=== PATIENT | male | born 1980 | race Two or more races ===

== ENCOUNTER → 2016-07-15 | Outpatient (CLI) | payer OTHER ==
--- NOTE | 2016-07-15 23:40 | ECWPNPC ---
PATIENT NAME: DANAE TURCIOS : 1980 GENDER: MALE VISIT DATE: 07/15/2016 DISCHARGE DATE: 07/15/16 1235 VISIT LOCKED DATE TIME: PHYSICIAN: HEMA MIRELES RESOURCE: HEMA MIRELES REASON FOR APPOINTMENT 1. LUMBAR HISTORY OF PRESENT ILLNESS NEW PATIENT CONSULT: 35 Y/[facility] AFTER SLIPPING ON ICE.PAIN IS LOW BACK WITH RADIATION INTO RIGHT LEG.HAD 3 LESI THIS PAST FALL AND STATES FIRST ONE HELPED X ONE MONTH BUT SECOND [address].DR. ZUNIGA SAW HIM ONCE 3 WEEKS AGO WHO ORDERED MRI.DID PT X10 SESSIONS LAST SUMMER AND THIS AGGREVATED PAIN.PAIN IS INTERUPTING SLEEP.HAS NOT BEEN ABLE TO WORK SINCE FALL AND WAS TAKEN OUT OF WORK BY [employer].RATING PAIN VAS 8/10.DENIES BOWEL AND BLADDER INCONTINENECE. WHEN DID YOUR PAIN FIRST START? . BRIEFLY DESCRIBE HOW YOUR PAIN STARTED? . HOW DOES YOUR PAIN CHANGE WITH TIME? . DOES YOUR PAIN AWAKEN YOU FROM SLEEP? . HOW MANY HOURS OF SLEEP DO YOU NORMALLY GET? . ANY DIAGNOSTIC TESTING? . FACILITY WHERE TESTS WERE DONE? ____. PAIN TREATMENT TREATMENT YES CANCER HAVE YOU EVER HAD ANY TYPE OF CANCER?NO NO. PAIN SCREENING: PATIENT HAS A COMPLAINT OF ACUTE OR CHRONIC PAIN YES FALL RISK SCREENING: SCREENING :NO FALLS IN THE PAST YEAR LORENZO INVENTORY: QUESTIONNAIRE ASSESSEDTBD SCORE VALUE CALCULATED TBD CURRENT MEDICATIONS TAKING GABAPENTIN 300 MG CAPSULE 1 CAPSULE ORALLY TWICE TIMES A DAY MEDICATION LIST REVIEWED AND RECONCILED WITH THE PATIENT PAST MEDICAL HISTORY NO MEDICAL HISTORY. ALLERGIES N.K.D.A. SURGICAL HISTORY RIGHT KNEE ORTHOSCOPIC 992 RIGHT BROKEN/PLATE ANKLE 2016 FAMILY HISTORY FATHER: ALIVE MOTHER: ALIVE SIBLINGS: ALIVE SON(S): ALIVE SOCIAL HISTORY GENERAL: TOBACCO USE ARE YOU A:CURRENT SMOKER HOW MANY CIGARETTES A DAY DO YOU SMOKE?11-20 HOW SOON AFTER YOU WAKE UP DO YOU SMOKE YOUR FIRST CIGARETTE?WITHIN 5 MIN HOW OFTEN DO YOU SMOKE CIGARETTES?EVERY DAY PATIENT COUNSELED ON THE DANGERS OF TOBACCO USE AND URGED TO QUIT:07/15/2016 ARE YOU INTERESTED IN QUITTING?THINKING ABOUT QUITTING COUNSELED THE PATIENT ON SMOKING CESSATION, EDUCATION [id number]/21/2017 SMOKING CESSATION INFORMATION GIVEN07/15/2016 RECREATIONAL DRUG USE DRUG USE?NO CAFFEINE CAFFEINE USE?YES OCCUPATION: NOT WORKING [employer] WORKED IN A YEAR, . DIET: REGULAR. EXERCISE: WALKS. MARITAL STATUS: SINGLE. CHURCH: NO PREFERENCE. LANGUAGE: BERMUDIAN. PSYCHOLOGICAL HX TREATMENTNO PAIN CLINIC PFS, CLERGY, PUBLIC HEALTH REFERRALS CLERGY REFERRAL NEEDED?NO WAS THE PROVIDER NOTIFIED OF ANY PERTINENT INFO?NO PFS REFERRAL NEEDED?NO PUBLIC HEALTH REFERRAL NEEDED?NO PATIENT: ____. ADVANCED DIRECTIVES HEALTH CARE PROXY?NO POWER OF STRING LASTER?NO HOSPITALIZATION/MAJOR DIAGNOSTIC PROCEDURE NO HOSPITALIZATION HISTORY. REVIEW OF SYSTEMS CONSTITUTIONAL: RECENT ILLNESS DENIES . ANY CHANGE IN YOUR MEDICAL CONDITION? NO . CHILLS NO . FEVER NO, DENIES . WEIGHT LOSS DENIES . INFECTION: DO YOU HAVE NEW INFECTIONS? NO . DO YOU HAVE HISTORY OF MRSA? NO . MUSCULOSKELETAL: ANY NEW PATTERNS OF PAIN OR NUMBNESS? NO . SYTEMIC LUPUS NO . JOINT PAIN DENIES . JOINT STIFFNESS DENIES . GASTROENTEROLOGY: BOWEL INCONTINENCE DENIES . ANY NEW CHANGE IN BOWEL CONTROL? NO . BARRETTS ESOPHAGUS NO . CIRRHOSIS NO . HEPATITIS NO . LIVER FAILURE NO . ACID REFLUX NO . BLOOD IN STOOL DENIES . UNEXPLAINED WEIGHT LOSS NO . GENITOURINARY: ANY NEW CHANGE IN BLADDER CONTROL? NO . IS THERE A CHANCE YOU COULD BE ? NO . HEMATOLOGY/LYMPH: DENIES . BLEEDING DISORDER DENIES . DO YOU TAKE ANY BLOOD THINNERS? (FOR EXAMPLE- COUMADIN, PLAVIX, AGGRENOX, PLATEL, PRADAXA, OR XARELTO) NO . WHEN WAS YOUR LAST DOSE? DATE: TIME: . LOW PLATELET COUNT NO . SICKLE CELL DISEASE NO . VON WILLIEBRANDS NO . FACTOR V LEIDEN NO . THALLASEMIA NO . ANEMIA NO . EASY BRUISING NO . NEUROLOGY: HAVE YOU FALLEN IN THE PAST 6 MONTHS? NO . ANY NEW EXTREMITY NUMBNESS OR WEAKNESS? NO . HEAD INJURY NO . DEMENTIA NO . CEREBRAL PALSY NO . MULTIPLE SCLEROSIS NO . DIZZINESS NO . HEADACHE NO, DENIES . SEIZURES DENIES . STROKES NO . VERTIGO NO . CARDIOLOGY: DO YOU HAVE A PACEMAKER OR DEFIBRILLATOR? NO . ANGINA NO . HEART ATTACK NO . HEART SURGERY NO . CONGESTIVE HEART FAILURE/FLUID OVERLOAD NO . CHEST PAIN NO, DENIES . HIGH BLOOD PRESSURE NO . IRREGULAR HEART BEAT NO . SHORTNESS OF BREATH DENIES . RESPIRATORY: HAVE YOU BEEN SICK IN THE PAST WEEK? NO . FEVER NO . FLU LIKE SYMPTOMS? NO . CPAP NO . BYPAP NO . ASTHMA NO . EMPHYSEMA NO . CHRONIC LUNG DISEASES NO . SHORTNESS OF BREATH ON EXERTION NO . DO YOU USE ANY TYPE OF TOBACCO (SMOKE, SMOKELESS, CHEW)? NO . COUGH NO, DENIES . SHORTNESS OF BREATH DENIES . SNORING NO . INTEGUMENTARY: DO YOU HAVE ANY RASHES OR OPEN SORES? NO . ALLERGIC/IMMUNO: ARE YOU ALLERGIC TO SHELLFISH OR IV DYE? NO . ANY NEW ALLERGIES? NO . PSYCHIATRIC: DO YOU HAVE THOUGHTS OF HURTING YOURSELF OR SOMEONE ELSE? NO . ARE YOU ABUSED, NEGLECTED, OR IN AN UNSAFE ENVIRONMENT? NO . ENDOCRINOLOGY: THYROID DISEASE DENIES . ARE YOU DIABETIC? NO . DIABETES DENIES . THYROID DISORDER NO . OTHER: DO YOU NEED ANY PRESCRIPTIONS? NO . IF YES, PLEASE LIST: ____ . ANY NEW PROBLEMS WITH YOUR MEDICATIONS? NO . WHEN DID YOU LAST EAT? ____ . WHEN DID YOU LAST DRINK? ____ . WHAT DID YOU LAST DRINK? ____ . NAME OF PERSON DRIVING YOU HOME? ____ . DO YOU HAVE ANY OTHER QUESTIONS OR CONCERNS NO . HEENT: CHANGE IN VISION DENIES . LOSS OF HEARING DENIES . TROUBLE SWALLOWING DENIES . PSYCHOLOGY: ANXIETY DENIES . DEPRESSION DENIES . UROLOGY: URINARY INCONTINENCE DENIES . BLOOD IN URINE DENIES . REVIEWED BY: PROVIDER: HEMA SLATER . VITAL SIGNS WT 277.6 LBS, HT 72 IN, BMI 37.65 INDEX, BP 147/81 MM HG, HR 85 /MIN, RR 16 /MIN, TEMP 98.1 F, OXYGEN SAT % 94%, NA INITIALS SC 10:51, REVIEWED BY: KG. EXAMINATION GENERAL EXAMINATION: HEENT:HEAD:, NORMOCEPHALIC, EYES:, EYES NORMAL, NOSE:, NOSE CLEAR, THROAT: NORMAL. LUNGS:LUNG SOUNDS ARE CLEAR. HEART:HEART RATE REGULAR. ABDOMEN:SOFT AND NOT TENDER, NON-DISTENDED. MUSCULOSKELETAL:*. LUMBAR SACRAL SPINEMUSCLE STRENGTH TESTING 5/5 BILATERAL LOWER EXTREMITIES. PALPATION: + FOR PAIN OVER L/S SPINE. + FOR PAIN OVER L/S PARASPINALS.SPECIFIC POINT TENDERNESS OVER RSIJ.TRIGGER POINTS ELICITED IN BILAT.LUMBAR PARASPINALS R>L.. THORACIC SPINENEGATIVE FOR PAIN WITH PALPATION OF THORACIC SPINE. NEGATIVE FOR PAIN WITH PALPATION OF THORACIC PARASPINAL. CERVICALNEGATIVE FOR PAIN WITH PALPATION OF CERVICAL SPINE. NEGATIVE FOR PAIN WITH PALPATION OF CERVICAL PARASPINALS. NEGATIVE FOR PAIN WITH PALPATION OF TRAPEZIUS BILAT. SKIN:NORMAL, NO RASH. NEUROLOGIC EXAM:ALERT AND ORIENTED X 3, DTRS 1-2+ IN ALL 4 EXTREMITIES, DENIES UPPER EXTREMETIES SENSORY LOSS, DENIES LOWER EXTREMETIES SENSORY LOSS. 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 ASSESSMENTS SACROILIAC JOINT PAIN - M53.3 (PRIMARY) PROTRUDED LUMBAR DISC - M51.26 CHRONIC PRESCRIPTION OPIATE USE - Z79.891 TREATMENT OTHERS START NORCO TABLET, 5-325 MG, 1 TABLET NEEDED, ORALLY, Q12H PRN MDD2, 30 DAY(S), 30, REFILLS 0 START CYCLOBENZAPRINE HCL TABLET, 10 MG, 1 TABLET, ORALLY, BEFORE BEDTIME, 30 DAY(S), 30, REFILLS 1 NOTES: NARCOTIC AGREEMENT AND CLINIC POLICY REVIEWED. PREVENTIVE MEDICINE PAIN CLINIC TEACHING: MEDICATIONS HYDROCODONE/FLEXERIL. PROCEDURE TEACHING WENT OVER PROCEDURE INSTRUCTIONS WITH PT. PROCEDURE CODES FA211 ESTABILISHED PATIENT [facility] FACILITY CHARGE DISPOSITION & COMMUNICATION FOLLOW UP 2WK POST (REASON: RSIJ) ELECTRONICALLY SIGNED BY NOHEMY FRASER ON 07/15/2016 AT 01:33 PM EST DISCLAIMER : THIS IS A VISIT SUMMARY EXTRACTED FROM THE [employer] CHART. IT IS NOT A COPY OF THE [employer] PROGRESS NOTE. LISAD
== END ==
LOC: M PAIN 11:20
PROVIDERS: ATTEND Nurse Practitioner Family
DX: M53.3 Sacrococcygeal disorders, not elsewhere classified (principal); M51.26 Other intervertebral disc displacement, lumbar region; Z79.891 Long term (current) use of opiate analgesic; Z79.899 Other long term (current) drug therapy; F17.200 Nicotine dependence, unspecified, uncomplicated

== ENCOUNTER → 2016-08-12 | Outpatient (CLI) | payer OTHER ==
[~2016-08-12] MED LIST: BUPIVACAINE HCL 0.25% 30 ML VIAL As Ordered ONE; ISOVUE-M 300 61% 15ML VIAL (Q9967) As Ordered ONE; LIDOCAINE 1% SDV INJ 30 ML VIAL As Ordered ONE; TRIAMCINOLONE ACETONIDE SUSP 40 MG/ML VIAL (J3301) As Ordered ONE
--- NOTE | 2016-08-12 13:04 | REP ---
Partial SI joint series: Four views. History: Injection procedure for pain. 21 seconds of fluoroscopy time is reported. Findings: A sequence of four fluoroscopically obtained intraprocedural spot radiographs of the right SI joint document needle position and contrast injection for injection procedure. Signed by Pako Jones MD 08/12/2016 03:01 P
--- NOTE | 2016-08-14 00:15 | ECWPNPC ---
PATIENT NAME: DANAE TURCIOS : 1980 GENDER: MALE VISIT DATE: 08/12/2016 DISCHARGE DATE: 08/12/16 1014 VISIT LOCKED DATE TIME: PHYSICIAN: PURA GORE RESOURCE: PURA GORE REASON FOR APPOINTMENT 1. RIGHT SIJ HISTORY OF PRESENT ILLNESS HISTORY OF PRESENT ILLNESS: PAIN THE PATIENT DESCRIBES THE PAIN... FALL RISK SCREENING: SCREENING :NO FALLS IN THE PAST YEAR CURRENT MEDICATIONS TAKING GABAPENTIN 300 MG CAPSULE 1 CAPSULE ORALLY TWICE TIMES A DAY, NOTES: [id number] TAKING NORCO 5-325 MG TABLET 1 TABLET NEEDED ORALLY Q12H PRN MDD2, NOTES: 08-11-162199 TAKING CYCLOBENZAPRINE HCL 10 MG TABLET 1 TABLET ORALLY BEFORE BEDTIME, NOTES: [id number] ALLERGIES N.K.D.A. SOCIAL HISTORY GENERAL: TOBACCO USE ARE YOU A:CURRENT SMOKER LEARNING BARRIERS / SPECIAL NEEDS ORIENTED TO PLAN OF CARE: PATIENT, PAIN MANAGEMENT PATIENT, ORIENTED TO PLAN OF CARE: PATIENT, PAIN MANAGEMENT PATIENT. NEW PATIENT PAIN DIARY TODAY'S VISITNOTES FROM 0-10, WHAT LEVEL IS YOUR PAIN TODAY?0 PAIN CLINIC PFS, CLERGY, PUBLIC HEALTH REFERRALS PFS REFERRAL NEEDED?NO CLERGY REFERRAL NEEDED?NO PUBLIC HEALTH REFERRAL NEEDED?NO WAS THE PROVIDER NOTIFIED OF ANY PERTINENT INFO?NO PFS REFERRAL NEEDED?NO CLERGY REFERRAL NEEDED?NO PUBLIC HEALTH REFERRAL NEEDED?NO WAS THE PROVIDER NOTIFIED OF ANY PERTINENT INFO?NO REVIEW OF SYSTEMS CONSTITUTIONAL: ANY CHANGE IN YOUR MEDICAL CONDITION? NO . CHILLS NO . FEVER NO . INFECTION: DO YOU HAVE NEW INFECTIONS? NO . DO YOU HAVE HISTORY OF MRSA? NO . MUSCULOSKELETAL: ANY NEW PATTERNS OF PAIN OR NUMBNESS? NO . GASTROENTEROLOGY: ANY NEW CHANGE IN BOWEL CONTROL? NO . GENITOURINARY: ANY NEW CHANGE IN BLADDER CONTROL? NO . IS THERE A CHANCE YOU COULD BE ? NO . HEMATOLOGY/LYMPH: DO YOU TAKE ANY BLOOD THINNERS? (FOR EXAMPLE- COUMADIN, PLAVIX, AGGRENOX, PLATEL, PRADAXA, OR XARELTO) NO . WHEN WAS YOUR LAST DOSE? DATE: TIME: . NEUROLOGY: HAVE YOU FALLEN IN THE PAST 6 MONTHS? NO . ANY NEW EXTREMITY NUMBNESS OR WEAKNESS? NO . CARDIOLOGY: DO YOU HAVE A PACEMAKER OR DEFIBRILLATOR? NO . RESPIRATORY: HAVE YOU BEEN SICK IN THE PAST WEEK? NO . FEVER NO . FLU LIKE SYMPTOMS? NO . COUGH NO . INTEGUMENTARY: DO YOU HAVE ANY RASHES OR OPEN SORES? NO . ALLERGIC/IMMUNO: ARE YOU ALLERGIC TO SHELLFISH OR IV DYE? NO . ANY NEW ALLERGIES? NO . PSYCHIATRIC: DO YOU HAVE THOUGHTS OF HURTING YOURSELF OR SOMEONE ELSE? NO . ARE YOU ABUSED, NEGLECTED, OR IN AN UNSAFE ENVIRONMENT? NO . ENDOCRINOLOGY: ARE YOU DIABETIC? NO . OTHER: DO YOU NEED ANY PRESCRIPTIONS? YES HYDROCODONE . IF YES, PLEASE LIST: ____ . ANY NEW PROBLEMS WITH YOUR MEDICATIONS? NO . WHEN DID YOU LAST EAT? ____ . WHEN DID YOU LAST DRINK? ____ . WHAT DID YOU LAST DRINK? ____ . NAME OF PERSON DRIVING YOU HOME? ____ . DO YOU HAVE ANY OTHER QUESTIONS OR CONCERNS NO . REVIEWED BY: PROVIDER: . VITAL SIGNS WT 280.8 LBS, HT 72 IN, BMI 38.08 INDEX, BP 138/79 MM HG, HR 86 /MIN, RR 16 /MIN, TEMP 99.0 F, OXYGEN SAT % 98%, NA INITIALS SC 08:45, REVIEWED BY: KG. ASSESSMENTS SACROILIITIS, NOT ELSEWHERE CLASSIFIED - M46.1 (PRIMARY) PROCEDURES PN SI PRE PROCEDURE DIAGNOSIS SACROILIITIS, SACROILIAC JOINT DYSFUNCTION POST PROCEDURE DIAGNOSIS SACROILIITIS, SACROILIAC JOINT DYSFUNCTION PROCEDURE RIGHT SACROILIAC JOINT BLOCK SURGEON DR. PURA GORE PRIZE FIGHTER NONE ANESTHESIA LOCAL PRE PROCEDURE NOTE PATIENT WITH HISTORY OF CHRONIC LOW BACK PAIN. I EVALUATED THE PATIENT AND REVIEWED THE CHART. I WENT OVER THE RISKS, ALTERNATIVES, AND BENEFITS ASSOCIATED WITH THIS PROCEDURE. THE PATIENT WOULD LIKE TO PROCEED AND GAVE CONSENT TO PERFORM THE PROCEDURE. THE PATIENT DENIES UNEXPLAINABLE WEIGHT LOSS, FEVER, CHILLS, OR NEW CHANGES IN URINARY OR BOWEL CONTROL DESCRIPTION OF PROCEDURE THE PATIENT WAS BROUGHT TO THE PROCEDURE ROOM AND PLACED IN THE PRONE POSITION. THE LUMBOSACRAL AREA WAS CLEANED WITH CHLORAPREP SOLUTION AND DRAPED ASEPTICALLY. THE PROCEDURE WAS DONE UNDER STERILE CONDITIONS. I CHECKED LATERALITY AND THE LEVEL WHERE THE PROCEDURE WAS GOING TO BE PERFORMED WITH THE PATIENT AND THE SUPPORTING STAFF AT THE MOMENT OF THE TIME OUT IN THE PROCEDURE ROOM. UNDER FLUOROSCOPIC GUIDANCE, TARGET POINT WAS SELECTED AT THE LOWER BORDER OF THE RIGHT SACROILIAC JOINT. TARGET POINT WAS SELECTED AFTER MEDIAL ROTATION AND TILT OF THE MAGNIFIER OF THE C-ARM. LIDOCAINE WAS USED TO NUMB THE SKIN AND SUBCUTANEOUS TISSUE BELOW IT. A SPINAL NEEDLE, 22-GAUGE, WAS ADVANCED UNDER FLUOROSCOPIC GUIDANCE AND FOLLOWING PATIENT FEEDBACK UNTIL THE TARGET AREA WAS TOUCHED. THE POSITION OF THE NEEDLE WAS VERIFIED WITH AP AND LATERAL VIEWS. AFTER PROPER POSITION OF THE NEEDLE WAS ACHIEVED, ISOVUE M DYE 30%, 0.25 ML, WAS INJECTED SHOWING SPREAD OF THE DYE. THEN, A SOLUTION OF 20 MG OF KENALOG WAS INJECTED IN RIGHT JOINT WITH 3 ML OF BUPIVACAINE 0.125%. THERE WAS NO EVIDENCE OF BLOOD, PARESTHESIA OR CEREBROSPINAL FLUID DURING THE PROCEDURE. THE PATIENT WAS SENT TO THE RECOVERY ROOM. THE PATIENT WAS MOVING THE EXTREMITIES AND DOING WELL. THERE WAS NO COMPLICATION DURING THE PROCEDURE. FLUOROSCOPY TIME WAS 21 SECONDS POST PROCEDURE NOTE THE PATIENT WILL BE SEEN IN A FOLLOW UP IN THE NEXT FEW WEEKS. INSTRUCTIONS WERE GIVEN, QUESTIONS WERE ANSWERED, AND THE PATIENT EXPRESSED UNDERSTANDING AND AGREED WITH THE PLAN. I, SHAYNA PAULA, DOCUMENTED THE ABOVE INFORMATION ACTING A SCRIBE FOR DR. GORE. I, DR. GORE, HAVE REVIEWED THE ABOVE DOCUMENT, SCRIBED BY SHAYNA PAULA, AND I VERIFY THAT IT IS ACCURATE DIAGNOSTIC IMAGING [facility] FLUORO GUIDANCE (PAIN)[id number] PROCEDURE CODES 85541 INJECT SACROILIAC JOINT 6045F RADXPS IN END [id number] PXD DISPOSITION & COMMUNICATION FOLLOW UP 3 WEEKS ELECTRONICALLY SIGNED BY PURA GORE MD ON 08/13/2016 AT 08:36 PM EDT DISCLAIMER : THIS IS A VISIT SUMMARY EXTRACTED FROM THE [employer] CHART. IT IS NOT A COPY OF THE [employer] PROGRESS NOTE. MTDD
== END ==
LOC: M PAIN 08:40
PROVIDERS: ATTEND Anesthesiology
DX: G89.29 Other chronic pain (principal); M46.1 Sacroiliitis, not elsewhere classified; M54.5 Low back pain; Z79.891 Long term (current) use of opiate analgesic; Z79.899 Other long term (current) drug therapy
CPT/HCPCS: G0260; J3301; Q9967

== ENCOUNTER → 2016-08-26 | Outpatient (CLI) | payer OTHER ==
--- NOTE | 2016-09-03 01:14 | ECWPNPC ---
PATIENT NAME: DANAE TURCIOS : 1980 GENDER: MALE VISIT DATE: 08/26/2016 DISCHARGE DATE: 08/26/16 1033 VISIT LOCKED DATE TIME: PHYSICIAN: HEMA MIRELES RESOURCE: HEMA MIRELES REASON FOR APPOINTMENT 1. POST SIJ INJ HISTORY OF PRESENT ILLNESS HISTORY OF PRESENT ILLNESS: HERE FOR POST PROCEDURE F/U.HAD RSIJ ON08-12-16.(SEE HX BELOW)REPORTS ONE WEEK IMPROVEMENT AT 50% REDUCTION IN PAIN THEN PAIN HAS RETURNED TO BASELINE.PAIN IS LOCATED IN RIGHT LOW BACK.RATING PAIN VAS 8/10.REVIEWED MRI L/S SPINE 12-29-15 REVIEWED AND SHOWING RIGHT L4/5 INTRAFORAMINAL DISC PROTRUSION.DISCUSSED INTRAFORAMINAL EPIDURAL AT THIS LEVEL.REVIEWED INCREASED RISK AND POTENTIAL BENEFITS. PAIN THE PATIENT DESCRIBES THE PAIN... FALL RISK SCREENING: SCREENING :NO FALLS IN THE PAST YEAR NEW PATIENT CONSULT: 35 [facility] YE[facility] AFTER SLIPPING ON ICE.PAIN IS LOW BACK WITH RADIATION INTO RIGHT LEG.HAD 3 LESI THIS PAST FALL AND STATES FIRST ONE HELPED X ONE MONTH BUT SECOND [address]DR. ZUNIGA SAW HIM ONCE 3 WEEKS AGO WHO ORDERED MRI.DID PT X10 SESSIONS LAST SUMMER AND THIS AGGREVATED PAIN.PAIN IS INTERUPTING SLEEP.HAS NOT BEEN ABLE TO WORK SINCE FALL AND WAS TAKEN OUT OF WORK BY [facility].RATING PAIN VAS 8/10.DENIES BOWEL AND BLADDER INCONTINENECE. WHEN DID YOUR PAIN FIRST START? . BRIEFLY DESCRIBE HOW YOUR PAIN STARTED? . HOW DOES YOUR PAIN CHANGE WITH TIME? . DOES YOUR PAIN AWAKEN YOU FROM SLEEP? . HOW MANY HOURS OF SLEEP DO YOU NORMALLY GET? . ANY DIAGNOSTIC TESTING? . FACILITY WHERE TESTS WERE DONE? ____. PAIN TREATMENT TREATMENT YES CANCER HAVE YOU EVER HAD ANY TYPE OF CANCER?NO NO. CURRENT MEDICATIONS TAKING GABAPENTIN 300 MG CAPSULE 1 CAPSULE ORALLY TWICE TIMES A DAY TAKING NORCO 5-325 MG TABLET 1 TABLET NEEDED ORALLY Q12H PRN MDD2 TAKING CYCLOBENZAPRINE HCL 10 MG TABLET 1 TABLET ORALLY BEFORE BEDTIME MEDICATION LIST REVIEWED AND RECONCILED WITH THE PATIENT ALLERGIES N.K.D.A. SURGICAL HISTORY RIGHT KNEE ORTHOSCOPIC 1991 RIGHT BROKEN/PLATE ANKLE 2015 SOCIAL HISTORY GENERAL: PAIN CLINIC PFS, CLERGY, PUBLIC HEALTH REFERRALS PFS REFERRAL NEEDED?NO CLERGY REFERRAL NEEDED?NO PUBLIC HEALTH REFERRAL NEEDED?NO WAS THE PROVIDER NOTIFIED OF ANY PERTINENT INFO?YES PATIENT: ____. HOSPITALIZATION/MAJOR DIAGNOSTIC PROCEDURE NO HOSPITALIZATION HISTORY. REVIEW OF SYSTEMS CONSTITUTIONAL: ANY CHANGE IN YOUR MEDICAL CONDITION? NO . CHILLS NO . FEVER NO . INFECTION: DO YOU HAVE NEW INFECTIONS? NO . DO YOU HAVE HISTORY OF MRSA? NO . MUSCULOSKELETAL: ANY NEW PATTERNS OF PAIN OR NUMBNESS? NO . GASTROENTEROLOGY: ANY NEW CHANGE IN BOWEL CONTROL? NO . GENITOURINARY: ANY NEW CHANGE IN BLADDER CONTROL? NO . IS THERE A CHANCE YOU COULD BE ? NO . HEMATOLOGY/LYMPH: DO YOU TAKE ANY BLOOD THINNERS? (FOR EXAMPLE- COUMADIN, PLAVIX, AGGRENOX, PLATEL, PRADAXA, OR XARELTO) NO . WHEN WAS YOUR LAST DOSE? DATE: TIME: . NEUROLOGY: HAVE YOU FALLEN IN THE PAST 6 MONTHS? NO . ANY NEW EXTREMITY NUMBNESS OR WEAKNESS? NO . CARDIOLOGY: DO YOU HAVE A PACEMAKER OR DEFIBRILLATOR? NO . RESPIRATORY: HAVE YOU BEEN SICK IN THE PAST WEEK? NO . FEVER NO . FLU LIKE SYMPTOMS? NO . COUGH NO . INTEGUMENTARY: DO YOU HAVE ANY RASHES OR OPEN SORES? NO . ALLERGIC/IMMUNO: ARE YOU ALLERGIC TO SHELLFISH OR IV DYE? NO . ANY NEW ALLERGIES? NO . PSYCHIATRIC: DO YOU HAVE THOUGHTS OF HURTING YOURSELF OR SOMEONE ELSE? NO . ARE YOU ABUSED, NEGLECTED, OR IN AN UNSAFE ENVIRONMENT? NO . ENDOCRINOLOGY: ARE YOU DIABETIC? NO . OTHER: DO YOU NEED ANY PRESCRIPTIONS? NO . IF YES, PLEASE LIST: ____ . ANY NEW PROBLEMS WITH YOUR MEDICATIONS? NO . WHEN DID YOU LAST EAT? ____ . WHEN DID YOU LAST DRINK? ____ . WHAT DID YOU LAST DRINK? ____ . NAME OF PERSON DRIVING YOU HOME? ____ . DO YOU HAVE ANY OTHER QUESTIONS OR CONCERNS PT STATES THAT HE IS A CURRENT SMOKER, REFUSES ANY SMOKING CESSATION INFORMATION AT THIS TIME . REVIEWED BY: PROVIDER: HEMA SLATER . VITAL SIGNS WT 279.0 LBS, HT 72 IN, BMI 37.84 INDEX, BP 146/98 MM HG, HR 84 /MIN, RR 16 /MIN, TEMP 99.3 F, OXYGEN SAT % 97%, SAFE IN ENV? (Y/N) Y, NA INITIALS TL 0938, REVIEWED BY: CORIE BP, 146/98- TL. EXAMINATION GENERAL EXAMINATION: HEENT:HEAD:, NORMOCEPHALIC, EYES:, EYES NORMAL, NOSE:, NOSE CLEAR, THROAT: NORMAL. LUNGS:LUNG SOUNDS ARE CLEAR. HEART:HEART RATE REGULAR. ABDOMEN:SOFT AND NOT TENDER, NON-DISTENDED. MUSCULOSKELETAL:*. LUMBAR SACRAL SPINEMUSCLE STRENGTH TESTING 5/5 BILATERAL LOWER EXTREMITIES. PALPATION: + FOR PAIN OVER L/S SPINE. + FOR PAIN OVER L/S PARASPINALS.SPECIFIC POINT TENDERNESS OVER RSIJ.TRIGGER POINTS ELICITED IN BILAT.LUMBAR PARASPINALS R>L.. THORACIC SPINENEGATIVE FOR PAIN WITH PALPATION OF THORACIC SPINE. NEGATIVE FOR PAIN WITH PALPATION OF THORACIC PARASPINAL. CERVICALNEGATIVE FOR PAIN WITH PALPATION OF CERVICAL SPINE. NEGATIVE FOR PAIN WITH PALPATION OF CERVICAL PARASPINALS. NEGATIVE FOR PAIN WITH PALPATION OF TRAPEZIUS BILAT. SKIN:NORMAL, NO RASH. NEUROLOGIC EXAM:ALERT AND ORIENTED X 3, DTRS 1-2+ IN ALL 4 EXTREMITIES, DENIES UPPER EXTREMETIES SENSORY LOSS, DENIES LOWER EXTREMETIES SENSORY LOSS. 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 ASSESSMENTS SACROILIAC JOINT PAIN - M53.3 (PRIMARY) PROTRUDED LUMBAR DISC - M51.26 CHRONIC PRESCRIPTION OPIATE USE - Z79.891 TREATMENT SACROILIAC JOINT PAIN REFILL NORCO TABLET, 5-325 MG, 1 TABLET NEEDED, ORALLY, Q12H PRN MDD2, 30 DAY(S), 30, REFILLS 0 REFILL CYCLOBENZAPRINE HCL TABLET, 10 MG, 1 TABLET, ORALLY, BEFORE BEDTIME, 30 DAY(S), 30, REFILLS 1 NOTES: ISTOP REGISTRY REVIEWED AND DEMNOSTRATES COMPLLIANCE. BRINGS IN MEDICATIONS WHICH IS APPROPRIATE FOR WHAT WAS DISPENSED. RECENT URINE TOXICOLOGY REVIEWED. NO UNAUTHORIZED MEDICATIONS. NO ILLICIT SUBSTANCES AND PRESCRIBED MEDICATIONS WERE PRESENT. , RISKS AND BENEFITS OF NARCOTIC/OPIOD MEDICATIONS WERE REVIEWED WITH PATIENT - THIS INCLUDES BUT IS NOT LIMITED TO RISK OF DEPENDANCE/DEVELOPMENT OF ADDICTION, MOOD DISTURBANCE AND DEPRESSION, OSTEOPOROSIS, HORMONAL AND LABIDAL CHANGES, RESPIRATORY DEPRESSION AND . PATIENT IS ADVISED NOT TO DRIVE WHILE ON THESE MEDICATIONS.URINE TOX TODAY. PROTRUDED LUMBAR DISC SPINAL INJECTION PROCEDURES TRANSFORAMINAL EPIDURAL HEMA JACKSON 08/26/2016 10:22:06 AM > RIGHT L4/4 L5/S1 TRANSFORAMINAL EPIDURAL PROCEDURE CODES FA211 ESTABILISHED PATIENT [facility] CHARGE DISPOSITION & COMMUNICATION FOLLOW UP 2WK POST (REASON: RIGHT L4/5-L5/S1 TRANSFORAMINAL EPIDURAL) ELECTRONICALLY SIGNED BY NOHEMY FRASER ON 09/02/2016 AT 01:51 PM EDT DISCLAIMER : THIS IS A VISIT SUMMARY EXTRACTED FROM THE [employer] CHART. IT IS NOT A COPY OF THE [employer] PROGRESS NOTE. HILARY
== END ==
LOC: M PAIN 09:40
PROVIDERS: ATTEND Nurse Practitioner Family
DX: Z09 Encounter for follow-up examination after completed treatment for conditions other than malignant neoplasm (principal); G89.29 Other chronic pain; M53.3 Sacrococcygeal disorders, not elsewhere classified; M51.26 Other intervertebral disc displacement, lumbar region; M17.11 Unilateral primary osteoarthritis, right knee; Z79.899 Other long term (current) drug therapy

== ENCOUNTER → 2016-09-09 | Outpatient (CLI) | payer OTHER ==
[~2016-09-09] MED LIST changes: -BUPIVACAINE HCL 0.25% 30 ML VIAL As Ordered ONE; -TRIAMCINOLONE ACETONIDE SUSP 40 MG/ML VIAL (J3301) As Ordered ONE; +diazePAM 5 MG TAB As Ordered ONE; +methylPREDNISolone SUSP 40 MG/ML (DEPO-medrol) VIAL (J1030) As Ordered ONE; +oxyCODONE 5MG TAB As Ordered ONE
--- NOTE | 2016-09-09 13:34 | REP ---
Partial lumbar spine series: Four views. History: Lumbar epidural injection for pain. 9 seconds of fluoroscopy time is reported. Findings: A sequence of four fluoroscopically obtained last image hold spot radiographs of the lumbar spine document needle position and contrast injection associated with lumbar epidural injection procedure. Signed by Pako Jones MD 09/09/2016 03:40 P
--- NOTE | 2016-09-14 23:44 | ECWPNPC ---
PATIENT NAME: DANAE TURCIOS : 1980 GENDER: MALE VISIT DATE: 09/09/2016 DISCHARGE DATE: 09/09/16 1245 VISIT LOCKED DATE TIME: PHYSICIAN: PURA GORE RESOURCE: PURA GORE REASON FOR APPOINTMENT 1. BACK PAIN HISTORY OF PRESENT ILLNESS HISTORY OF PRESENT ILLNESS: PAIN THE PATIENT DESCRIBES THE PAIN... FALL RISK SCREENING: SCREENING :NO FALLS IN THE PAST YEAR CURRENT MEDICATIONS TAKING GABAPENTIN 300 MG CAPSULE 1 CAPSULE ORALLY TWICE TIMES A DAY, NOTES: 2200 YESTERDAY TAKING NORCO 5-325 MG TABLET 1 TABLET NEEDED ORALLY Q12H PRN MDD2, NOTES: 2199 YESTERDAY TAKING CYCLOBENZAPRINE HCL 10 MG TABLET 1 TABLET ORALLY BEFORE BEDTIME, NOTES: 2199 YESTERDAY MEDICATION LIST REVIEWED AND RECONCILED WITH THE PATIENT PAST MEDICAL HISTORY NO MEDICAL HISTORY. ALLERGIES N.K.D.A. SURGICAL HISTORY RIGHT KNEE ORTHOSCOPIC 1991 RIGHT BROKEN/PLATE ANKLE 2015 SOCIAL HISTORY GENERAL: PAIN CLINIC PFS, CLERGY, PUBLIC HEALTH REFERRALS CLERGY REFERRAL NEEDED?NO WAS THE PROVIDER NOTIFIED OF ANY PERTINENT INFO?NO PFS REFERRAL NEEDED?NO PUBLIC HEALTH REFERRAL NEEDED?NO PATIENT: ____. REVIEW OF SYSTEMS CONSTITUTIONAL: ANY CHANGE IN YOUR MEDICAL CONDITION? NO . CHILLS NO . FEVER NO . INFECTION: DO YOU HAVE NEW INFECTIONS? NO . DO YOU HAVE HISTORY OF MRSA? NO . MUSCULOSKELETAL: ANY NEW PATTERNS OF PAIN OR NUMBNESS? NO . GASTROENTEROLOGY: ANY NEW CHANGE IN BOWEL CONTROL? NO . GENITOURINARY: ANY NEW CHANGE IN BLADDER CONTROL? NO . IS THERE A CHANCE YOU COULD BE ? NO . HEMATOLOGY/LYMPH: DO YOU TAKE ANY BLOOD THINNERS? (FOR EXAMPLE- COUMADIN, PLAVIX, AGGRENOX, PLATEL, PRADAXA, OR XARELTO) NO . WHEN WAS YOUR LAST DOSE? DATE: TIME: . NEUROLOGY: HAVE YOU FALLEN IN THE PAST 6 MONTHS? NO . ANY NEW EXTREMITY NUMBNESS OR WEAKNESS? NO . CARDIOLOGY: DO YOU HAVE A PACEMAKER OR DEFIBRILLATOR? NO . RESPIRATORY: HAVE YOU BEEN SICK IN THE PAST WEEK? NO . FEVER NO . FLU LIKE SYMPTOMS? NO . COUGH NO . INTEGUMENTARY: DO YOU HAVE ANY RASHES OR OPEN SORES? NO . ALLERGIC/IMMUNO: ARE YOU ALLERGIC TO SHELLFISH OR IV DYE? NO . ANY NEW ALLERGIES? NO . PSYCHIATRIC: DO YOU HAVE THOUGHTS OF HURTING YOURSELF OR SOMEONE ELSE? NO . ARE YOU ABUSED, NEGLECTED, OR IN AN UNSAFE ENVIRONMENT? NO . ENDOCRINOLOGY: ARE YOU DIABETIC? NO . OTHER: DO YOU NEED ANY PRESCRIPTIONS? NO . IF YES, PLEASE LIST: ____ . ANY NEW PROBLEMS WITH YOUR MEDICATIONS? NO . WHEN DID YOU LAST EAT? 9PM YESTERDAY . WHEN DID YOU LAST DRINK? 9PM YESTERDAY . WHAT DID YOU LAST DRINK? WATER . NAME OF PERSON DRIVING YOU HOME? SHAYNA TURCIOS . DO YOU HAVE ANY OTHER QUESTIONS OR CONCERNS NO . REVIEWED BY: PROVIDER: . VITAL SIGNS WT 276.8 LBS, HT 72 IN, BMI 37.54 INDEX, BP 139/90 MM HG, HR 71 /MIN, RR 16 /MIN, TEMP 98.7 F, OXYGEN SAT % 98%, NA INITIALS AW 1021, REVIEWED BY: NL. ASSESSMENTS INTERVERTEBRAL DISC DISORDERS WITH RADICULOPATHY, LUMBAR REGION - M51.16 (PRIMARY) PROCEDURES PRE PROCEDURE DIAGNOSIS LUMBAR DISC DISORDER WITH RADICULOPATHY POST PROCEDURE DIAGNOSIS LUMBAR DISC DISORDER WITH RADICULOPATHY PROCEDURE LUMBAR EPIDURAL STEROID INJECTION UNDER FLUOROSCOPIC GUIDANCE SURGEON DR. PURA GORE BILINGUAL SALES ASSISTANT NONE ANESTHESIA LOCAL PRE PROCEDURE NOTE THE PATIENT HAS A HISTORY OF CHRONIC LOW BACK PAIN. I EVALUATE THE PATIENT AND REVIEWED THE CHART. I WENT OVER THE RISKS, ALTERNATIVES, AND BENEFITS ASSOCIATED WITH THIS PROCEDURE. THE PATIENT WOULD LIKE TO PROCEED AND GIVE CONSENT TO PERFORMED THE PROCEDURE. THE PATIENT DENIES UNEXPLAINABLE WEIGHT LOSS, FEVER, CHILLS, OR NEW CHANGES IN URINARY OR BOWEL CONTROL DESCRIPTION OF PROCEDURE THE PATIENT WAS BROUGHT TO THE PROCEDURE ROOM AND PLACED IN THE PRONE POSITION. THE LUMBOSACRAL AREA WAS CLEANED WITH BETADINE SOLUTION AND DRAPED ASEPTICALLY. THE PROCEDURE WAS DONE UNDER STERILE CONDITIONS. I CHECKED LATERALITY AND THE LEVEL WHERE THE PROCEDURE WAS GOING TO BE PERFORMED WITH THE PATIENT AND THE SUPPORTING STAFF AT THE MOMENT OF THE TIME OUT IN THE PROCEDURE ROOM. UNDER FLUOROSCOPIC GUIDANCE, THE TARGET POINT WAS SELECTED AT THE INTERLAMINAR LEVEL OF L4-L5. LIDOCAINE WAS USED TO NUMB THE SKIN AND THE SUBCUTANEOUS TISSUE BELOW IT. EPIDURAL TUOHY NEEDLE, 17-GAUGE, WAS ADVANCED UNDER FLUOROSCOPIC GUIDANCE AND FOLLOWING PATIENT FEEDBACK UNTIL THE EPIDURAL SPACE WAS REACHED, 7 CM DEEP INTO THE SKIN BY THE LOSS OF RESISTANCE TECHNIQUE. ISOVUE M DYE 30%, 0.25 ML, WAS INJECTED SHOWING ADEQUATE SPREAD OF THE DYE. THEN, A SOLUTION OF 3 ML OF NORMAL SALINE WITH DEPO-MEDROL 60 MG WAS INJECTED SLOWLY FOLLOWING PATIENT FEEDBACK. THERE WAS NO EVIDENCE OF BLOOD, PARESTHESIA OR CEREBROSPINAL FLUID DURING THE PROCEDURE. THE PATIENT WAS SENT TO THE RECOVERY ROOM. THE PATIENT WAS MOVING THE EXTREMITIES AND DOING WELL. THERE WAS NO COMPLICATION DURING THE PROCEDURE. FLUOROSCOPY TIME WAS 9 SECONDS POST PROCEDURE NOTE THE PATIENT WILL BE SEEN IN A FOLLOW UP IN THE NEXT FEW WEEKS. INSTRUCTIONS WERE GIVEN, QUESTIONS WERE ANSWERED, AND THE PATIENT EXPRESSED UNDERSTANDING AND AGREES WITH THE PLAN. INSTRUCTIONS WERE GIVEN, QUESTIONS WERE ANSWERED, PATIENT REPORTS UNDERSTANDING AND AGREES WITH THE PLAN. I, SHAYNA PAULA, DOCUMENTED THE ABOVE INFORMATION ACTING A SCRIBE FOR DR. GORE. I HAVE REVIEWED THE ABOVE DOCUMENT, WRITTEN BY SHAYNA PAULA SCRIBMeño AND I VERIFY THAT IT IS [facility] FLUORO GUIDE SPINE INJECTION (PAIN)[id number] PROCEDURE CODES 47998 LUMBAR/SACRAL W/ IMAGING 6045F RADXPS IN END [id number] PXD DISPOSITION & COMMUNICATION FOLLOW UP 3 WEEKS ELECTRONICALLY SIGNED BY PURA GORE MD ON 09/14/2016 AT 04:52 PM EDT DISCLAIMER : THIS IS A VISIT SUMMARY EXTRACTED FROM THE [employer] CHART. IT IS NOT A COPY OF THE [employer] PROGRESS NOTE. MTDD
== END ==
LOC: M PAIN 10:20
PROVIDERS: ATTEND Anesthesiology
DX: G89.29 Other chronic pain (principal); M51.16 Intervertebral disc disorders with radiculopathy, lumbar region; Z79.899 Other long term (current) drug therapy
CPT/HCPCS: 62323; J1030; Q9967

== ENCOUNTER → 2016-10-01 | Outpatient (CLI) | payer OTHER ==
--- NOTE | 2016-10-02 00:10 | ECWPNPC ---
PATIENT NAME: DANAE TURCIOS : 1980 GENDER: MALE VISIT DATE: 10/01/2016 DISCHARGE DATE: 10/01/16 1104 VISIT LOCKED DATE TIME: PHYSICIAN: HEMA MIRELES RESOURCE: HEMA MIRELES REASON FOR APPOINTMENT 1. POST LE HISTORY OF PRESENT ILLNESS HISTORY OF PRESENT ILLNESS: HERE FOR POST PROCEDURE F/U.HAD LESI 09-09-16.HAD >50% IMPROVEMENT IN LBP AND RIGHT LEG SYMPTOMS FOR APPROXIMATLEY 20 DAYS THEN PAIN HAS RETURNED TO BASELINE.RATTING PAIN VAS 10/10.PAIN IS DESCRIBED CONSTANT,THROBBING AND SHOOTING.HAS HAD TO USE MORE OF HYDROCODONE AND FLEXERIL OVER THE PAST FEW DAYS.REVIEWED MRI L/S SPINE ORDERED BY DR. ZUNIGA AND DONE ON 07-16-2016.SHOWING A QUESTION OF DISCITIS AT L5/S1 AND A CONTRAST ENHANCED MRI WAS RECOMMENDED. PAIN THE PATIENT DESCRIBES THE PAIN... FALL RISK SCREENING: SCREENING :NO FALLS IN THE PAST YEAR CURRENT MEDICATIONS TAKING GABAPENTIN 300 MG CAPSULE 1 CAPSULE ORALLY TWICE TIMES A DAY, NOTES: 2200 YESTERDAY TAKING NORCO 5-325 MG TABLET 1 TABLET NEEDED ORALLY Q12H PRN MDD2, NOTES: 2200 YESTERDAY TAKING CYCLOBENZAPRINE HCL 10 MG TABLET 1 TABLET ORALLY BEFORE BEDTIME, NOTES: 220 YESTERDAY MEDICATION LIST REVIEWED AND RECONCILED WITH THE PATIENT ALLERGIES N.K.D.A. REVIEW OF SYSTEMS CONSTITUTIONAL: ANY CHANGE IN YOUR MEDICAL CONDITION? NO . CHILLS NO . FEVER NO . INFECTION: DO YOU HAVE NEW INFECTIONS? NO . DO YOU HAVE HISTORY OF MRSA? NO . MUSCULOSKELETAL: ANY NEW PATTERNS OF PAIN OR NUMBNESS? YES PT HAD LESI 09/09, WITH GOOD RESULTS , /10, LASTING ABOUT TWO WEEKS. PAIN IS NOW PRESENT IN LOW BACK AND RADIATES DOWN RIGHT LEG, A 10/10 . GASTROENTEROLOGY: ANY NEW CHANGE IN BOWEL CONTROL? NO . GENITOURINARY: ANY NEW CHANGE IN BLADDER CONTROL? NO . IS THERE A CHANCE YOU COULD BE ? NO . HEMATOLOGY/LYMPH: DO YOU TAKE ANY BLOOD THINNERS? (FOR EXAMPLE- COUMADIN, PLAVIX, AGGRENOX, PLATEL, PRADAXA, OR XARELTO) NO . WHEN WAS YOUR LAST DOSE? DATE: TIME: . NEUROLOGY: HAVE YOU FALLEN IN THE PAST 6 MONTHS? NO . ANY NEW EXTREMITY NUMBNESS OR WEAKNESS? NO . CARDIOLOGY: DO YOU HAVE A PACEMAKER OR DEFIBRILLATOR? NO . RESPIRATORY: HAVE YOU BEEN SICK IN THE PAST WEEK? NO . FEVER NO . FLU LIKE SYMPTOMS? NO . COUGH NO . INTEGUMENTARY: DO YOU HAVE ANY RASHES OR OPEN SORES? NO . ALLERGIC/IMMUNO: ARE YOU ALLERGIC TO SHELLFISH OR IV DYE? NO . ANY NEW ALLERGIES? NO . PSYCHIATRIC: DO YOU HAVE THOUGHTS OF HURTING YOURSELF OR SOMEONE ELSE? NO . ARE YOU ABUSED, NEGLECTED, OR IN AN UNSAFE ENVIRONMENT? NO . ENDOCRINOLOGY: ARE YOU DIABETIC? NO . OTHER: DO YOU NEED ANY PRESCRIPTIONS? NO . IF YES, PLEASE LIST: ____ . ANY NEW PROBLEMS WITH YOUR MEDICATIONS? NO . WHEN DID YOU LAST EAT? ____ . WHEN DID YOU LAST DRINK? ____ . WHAT DID YOU LAST DRINK? ____ . NAME OF PERSON DRIVING YOU HOME? ____ . DO YOU HAVE ANY OTHER QUESTIONS OR CONCERNS NO . REVIEWED BY: PROVIDER: HEMA SLATER . VITAL SIGNS WT 281.8 LBS, HT 72 IN, BMI 38.21 INDEX, BP 141/80 MM HG, HR 77 /MIN, RR 16 /MIN, TEMP 98.1 F, OXYGEN SAT % 98%, SAFE IN ENV? (Y/N) YES, NA INITIALS SC 10:07, REVIEWED BY: JOHNNY. EXAMINATION GENERAL EXAMINATION: HEENT:HEAD:, NORMOCEPHALIC, EYES:, EYES NORMAL, NOSE:, NOSE CLEAR, THROAT: NORMAL. LUNGS:LUNG SOUNDS ARE CLEAR. HEART:HEART RATE REGULAR. ABDOMEN:SOFT AND NOT TENDER, NON-DISTENDED. MUSCULOSKELETAL:*. LUMBAR SACRAL SPINEMUSCLE STRENGTH TESTING 5/5 BILATERAL LOWER EXTREMITIES. PALPATION: + FOR PAIN OVER L/S SPINE. + FOR PAIN OVER L/S PARASPINALS.SPECIFIC POINT TENDERNESS OVER RSIJ.TRIGGER POINTS ELICITED IN BILAT.LUMBAR PARASPINALS R>L.. THORACIC SPINENEGATIVE FOR PAIN WITH PALPATION OF THORACIC SPINE. NEGATIVE FOR PAIN WITH PALPATION OF THORACIC PARASPINAL. CERVICALNEGATIVE FOR PAIN WITH PALPATION OF CERVICAL SPINE. NEGATIVE FOR PAIN WITH PALPATION OF CERVICAL PARASPINALS. NEGATIVE FOR PAIN WITH PALPATION OF TRAPEZIUS BILAT. SKIN:NORMAL, NO RASH. NEUROLOGIC EXAM:ALERT AND ORIENTED X 3, DTRS 1-2+ IN ALL 4 EXTREMITIES, DENIES UPPER EXTREMETIES SENSORY LOSS, DENIES LOWER EXTREMETIES SENSORY LOSS. DIAGNOSTIC: MRI L/S [id number] RIGHT INTRAFORAMINAL DISC PROTRUSION L4/5.TGIS ABUTS RIGHT L4 NERVE IN NEURAL FORAMEN.DIFFUSE DISC BULGE AND SMALL CENTRAL DISC EXTRUSION AT L5/S1 LEVEL W MINIMAL COMPRESSION OF THECAL SACANDS1.THERE IS COMPRESSION OF L5 IN NEURAL FORAMINA.. ASSESSMENTS SACROILIAC JOINT PAIN - M53.3 (PRIMARY) PROTRUDED LUMBAR DISC - M51.26 CHRONIC PRESCRIPTION OPIATE USE - Z79.891 TREATMENT SACROILIAC JOINT PAIN CONTINUE GABAPENTIN CAPSULE, 300 MG, 1 CAPSULE, ORALLY, TWICE TIMES A DAY, NOTES: 220 YESTERDAY CONTINUE NORCO TABLET, 5-325 MG, 1 TABLET NEEDED, ORALLY, Q12H PRN MDD2, NOTES: 2199 YESTERDAY REFILL CYCLOBENZAPRINE HCL TABLET, 10 MG, 1 TABLET, ORALLY, BEFORE BEDTIME, 30 DAY(S), 30, REFILLS 1, NOTES: 2199 YESTERDAY [facility] MRI SPINE, L.S. WITH [id number] PROCEDURE CODES FA211 ESTABILISHED PATIENT [facility] CHARGE DISPOSITION & COMMUNICATION FOLLOW UP 2 WEEKS (REASON: REVIEW MRI) ELECTRONICALLY SIGNED BY NOHEMY FRASER ON 10/01/2016 AT 02:50 PM EDT DISCLAIMER : THIS IS A VISIT SUMMARY EXTRACTED FROM THE [employer] CHART. IT IS NOT A COPY OF THE [employer] PROGRESS NOTE. MTDMargi
== END ==
LOC: M PAIN 10:00
PROVIDERS: ATTEND Nurse Practitioner Family
DX: G89.29 Other chronic pain (principal); M53.3 Sacrococcygeal disorders, not elsewhere classified; M51.26 Other intervertebral disc displacement, lumbar region; Z79.891 Long term (current) use of opiate analgesic; Z79.899 Other long term (current) drug therapy

== ENCOUNTER 2018-05-10 15:54 | Emergency (ER) | payer OTHER ==
[2018-05-10] MEDS: GABAPENTIN 300 MG CAP PO (19:00)
== END 2018-05-10 19:06 | disposition home or self-care (01) ==
LOC: M ED 15:54
DX: R20.2 Paresthesia of skin (principal); M79.2 Neuralgia and neuritis, unspecified; Z79.899 Other long term (current) drug therapy; F17.210 Nicotine dependence, cigarettes, uncomplicated
CPT/HCPCS: 99282

== ENCOUNTER → 2018-05-12 | Outpatient (REF) | payer OTHER ==
[~2018-05-12] MED LIST changes: +DULO1CAP2 PO; +GABA-843 PO; -ISOVUE-M 300 61% 15ML VIAL (Q9967) As Ordered ONE; -LIDOCAINE 1% SDV INJ 30 ML VIAL As Ordered ONE; +NEUR600T PO; -diazePAM 5 MG TAB As Ordered ONE; -methylPREDNISolone SUSP 40 MG/ML (DEPO-medrol) VIAL (J1030) As Ordered ONE; -oxyCODONE 5MG TAB As Ordered ONE
[2018-05-12 14:10] LABS: FOLATE 9.2 NG/ML; FREE T4 0.95 NG/DL (0.76-1.46); RHEUMATOID FACTOR QUANT < 10.0 IU/ML (<15.0); TOTAL PROTEIN 7.5 GM/DL (6.4-8.2); VITAMIN B12 LEVEL 527 PG/ML
[2018-05-12 14:21] LABS: HEMOGLOBIN A1c 6.1 %
[2018-05-13 13:55] LABS: ALBUMIN 4.67 GM/DL (3.29-5.55); ALBUMIN % 62.2 % (55.8-66.1); ALPHA-1-GLOBULIN % 3.9 % (2.9-4.9); ALPHA-1-GLOBULINS 0.29 GM/DL (0.17-0.41); ALPHA-2-GLOBULINS 0.77 GM/DL (0.42-0.99); ALPHA-2-GLOBULINS % 10.3 % (7.1-11.8); BETA-1-GLOBULINS 0.47 GM/DL (0.28-0.60); BETA-1-GLOBULINS % 6.2 % (4.7-7.2); BETA-2-GLOBULINS 0.47 GM/DL (0.19-0.55); BETA-2-GLOBULINS % 6.3 % (3.2-6.5); GAMMA GLOBULIN % 11.1 % (11.1-18.8); GAMMA GLOBULINS 0.83 GM/DL (0.65-1.58)
[2018-05-21 00:08] LABS: ANTINUCLEAR ANTIBODIES DIRECT Negative (Negative); VITAMIN B1 LEVEL WHOLE BLOOD 111.3 nmol/L (66.5-200.0); VITAMIN B6,PYRIDOXAL PHOSPHATE 11.1 ug/L (5.3-46.7); VITAMIN E(ALPHA TOCOPHEROL) 14.3 mg/L (5.9-19.4); VITAMIN E(GAMMA TOCOPHEROL) 2.2 mg/L (0.7-4.9)
[2018-05-23 08:44] LABS: DRVV SCREEN 35.7 SEC
[2018-05-23 08:47] LABS: PTT LUPUS TYPE ANTICOAG SCREEN 0.9 (0-1.2)
== END ==
LOC: M LABNEURO 09:30
PROVIDERS: ATTEND Psychiatry & Neurology Neurology
DX: M54.5 Low back pain (principal)

== ENCOUNTER 2018-12-24 21:30 | Emergency (ER) | payer OTHER ==
[~2018-12-24] VITALS: Ht 188 cm; Wt 122.7 kg
[~2018-12-24 21:30] MED LIST changes: -DULO1CAP2 PO; +DULO1CAP5 PO
[2018-12-25 00:29] VITALS: BP 125/70
[2018-12-25] MEDS ORDERED: PERI0.126 PO (01:10)
[2018-12-25] MEDS ORDERED: AUGM875T28 PO (01:10)
[2018-12-25] MEDS ORDERED: KETOROLAC TROMETHAMINE 10 MG TAB PO ONE (01:15)
[2018-12-25] MEDS ORDERED: AUGMENTIN 875 MG TAB PO ONE (01:15)
== END 2018-12-25 01:17 | disposition home or self-care (01) ==
LOC: M ED 21:30
DX: S01.511A Laceration without foreign body of lip, initial encounter (principal); K08.89 Other specified disorders of teeth and supporting structures; Y04.8XXA Assault by other bodily force, initial encounter; Y92.098 Other place in other non-institutional residence as the place of occurrence of the external cause; F41.9 Anxiety disorder, unspecified; F32.9 Major depressive disorder, single episode, unspecified; Z91.5 Personal history of self-harm; Z79.899 Other long term (current) drug therapy

== ENCOUNTER → 2019-01-06 | Outpatient (CLI) | payer OTHER ==
[~2019-01-06] MED LIST changes: +AUGM875T28 PO; +PERI0.126 PO
--- NOTE | 2019-01-26 03:31 | ECWPNPC ---
PATIENT NAME: DANAE TURCIOS : 1980 GENDER: MALE VISIT DATE: 01/06/2019 DISCHARGE DATE: 01/06/19854 VISIT LOCKED DATE TIME: PHYSICIAN: HEMA MIRELES RESOURCE: HEMA MIRELES DISCLAIMER : THIS IS A VISIT SUMMARY EXTRACTED FROM THE [facility] CHART. IT IS NOT A COPY OF THE [employer] PROGRESS NOTE. HILARY
== END ==
LOC: M PAIN 13:30
PROVIDERS: ATTEND Nurse Practitioner Family
DX: M51.16 Intervertebral disc disorders with radiculopathy, lumbar region (principal); G89.29 Other chronic pain; F17.210 Nicotine dependence, cigarettes, uncomplicated; Z79.899 Other long term (current) drug therapy

== ENCOUNTER → 2019-02-17 | Outpatient (CLI) | payer OTHER ==
[~2019-02-17] MED LIST changes: +ISOVUE-M 300 61% 15ML VIAL (Q9967) As Ordered ONE; +LIDOCAINE 1% SDV INJ 30 ML VIAL As Ordered ONE; +diazePAM 5 MG TAB As Ordered ONE; +methylPREDNISolone SUSP 40 MG/ML (DEPO-medrol) VIAL (J1030) As Ordered ONE; +oxyCODONE 5MG TAB As Ordered ONE
--- NOTE | 2019-02-17 13:58 | REP ---
C-ARM VIEWS LUMBAR SPINE: CLINICAL HISTORY: Pain. Two C-arm views lower lumbar spine performed during epidural injection performed by Dr. Bonner. There is a needle at the L4-5 level and a small amount of contrast is injected. 4 seconds fluoroscopy time utilized. Electronically Signed by Akhil Celestin MD 02/17/2019 04:55 P
--- NOTE | 2019-02-27 23:51 | ECWPNPC ---
PATIENT NAME: DANAE TURCIOS : 1980 GENDER: MALE VISIT DATE: 02/17/2019 DISCHARGE DATE: 02/17/19 1338 VISIT LOCKED DATE TIME: PHYSICIAN: PURA GORE MD RESOURCE: PURA GORE MD REASON FOR APPOINTMENT 1. LESI HISTORY OF PRESENT ILLNESS HISTORY OF PRESENT ILLNESS: PAIN THE PATIENT DESCRIBES THE PAIN... FALL RISK SCREENING: SCREENING :NO FALLS REPORTED IN THE LAST YEAR CURRENT MEDICATIONS TAKING GABAPENTIN 600 MG TABLET 1 CAPSULE ORALLY THREE TIMES DAILY, NOTES: 02-17-19 TAKING DULOXETINE HCL 60 MG CAPSULE DELAYED RELEASE PARTICLES 1 CAPSULE ORALLY ONCE A DAY TAKING CYCLOBENZAPRINE HCL 10 MG TABLET 1 TABLET NEEDED ORALLY Q8H PRN FOR SEVERE PAIN EPISODES TAKING NORCO 5-325 MG TABLET 1 TABLET NEEDED ORALLY EVERY 6 HRS MDD4 UNKNOWN NORCO 5-325 MG TABLET 1 TABLET NEEDED ORALLY Q12H PRN MDD2, NOTES: 2200 YESTERDAY UNKNOWN CYCLOBENZAPRINE HCL 10 MG TABLET 1 TABLET ORALLY BEFORE BEDTIME, NOTES: 0 YESTERDAY MEDICATION LIST REVIEWED AND RECONCILED WITH THE PATIENT PAST MEDICAL HISTORY CHRONIC BACK PAIN ALLERGIES N.K.D.A. SURGICAL HISTORY RIGHT KNEE ORTHOSCOPIC 1991 RIGHT BROKEN/PLATE ANKLE 2015 FAMILY HISTORY PATERNAL GRAND MOTHER: DIAGNOSED WITH OTHER MALIGNANT NEOPLASM OF UNSPECIFIED SITE MATERNAL GRAND FATHER: OTHER MALIGNANT NEOPLASM OF UNSPECIFIED SITE MATERNAL GRAND MOTHER: DIABETES SOCIAL HISTORY GENERAL: TOBACCO USE ARE YOU A:CURRENT SMOKER ARE YOU INTERESTED IN QUITTING?THINKING ABOUT QUITTING COUNSELED THE PATIENT ON SMOKING CESSATION, EDUCATION [id number]/2019 PATIENT COUNSELED ON THE DANGERS OF TOBACCO USE AND URGED TO QUIT:02/17/2019 PAIN CLINIC PFS, CLERGY, PUBLIC HEALTH REFERRALS PFS REFERRAL NEEDED?NO CLERGY REFERRAL NEEDED?NO PUBLIC HEALTH REFERRAL NEEDED?NO WAS THE PROVIDER NOTIFIED OF ANY PERTINENT INFO?NO HAS THE PATIENT BEEN EDUCATED REGARDING HIS/HER PLAN OF CARE?YES HAS THE PATIENT BEEN EDUCATED REGARDING PAIN, THE RISK FOR PAIN, THE IMPORTANCE OF EFFECTIVE PAIN MANAGEMENT, AND THE PAIN ASSESSMENT PROCESS?YES ADVANCE DIRECTIVE ADVANCE DIRECTIVE DISCUSSED WITH PATIENT:YES PT HAS HCP FOR SON DANAE TURCIOS LANGUAGE LANGUAGES SPOKEN:CZECH ALCOHOL SCREENING DID YOU HAVE A DRINK CONTAINING ALCOHOL IN THE PAST YEAR?YES HOW OFTEN DID YOU HAVE SIX OR MORE DRINKS ON ONE OCCASION IN THE PAST YEAR?NEVER (0 POINTS) HOW MANY DRINKS DID YOU HAVE ON A TYPICAL DAY WHEN YOU WERE DRINKING IN THE PAST YEAR?1 OR 2 (0 POINTS) HOW OFTEN DID YOU HAVE A DRINK CONTAINING ALCOHOL IN THE PAST YEAR?TWO TO FOUR TIMES A MONTH (2 POINTS) POINTS2 INTERPRETATIONNEGATIVE LEARNING BARRIERS / SPECIAL NEEDS BARRIERS TO LEARNING?NO HEARING IMPAIRED?NO VISION IMPAIRED?YES COGNITIVELY IMPAIRED?NO :CORRECTIVE LENSES READINESS TO LEARN?YES REVIEWED WITH PT 01/06/19 6766 BV. HOSPITALIZATION/MAJOR DIAGNOSTIC PROCEDURE NONE OTHER THAN SURGERIES ABOVE REVIEW OF SYSTEMS REVIEWED BY: PROVIDER: . CONSTITUTIONAL: ANY CHANGE IN YOUR MEDICAL CONDITION? NO . CHILLS NO . FEVER NO . INFECTION: DO YOU HAVE NEW INFECTIONS? NO . DO YOU HAVE HISTORY OF MRSA? NO . MUSCULOSKELETAL: ANY NEW PATTERNS OF PAIN OR NUMBNESS? NO . GASTROENTEROLOGY: ANY NEW CHANGE IN BOWEL CONTROL? NO . GENITOURINARY: ANY NEW CHANGE IN BLADDER CONTROL? NO . IS THERE A CHANCE YOU COULD BE ? NO . HEMATOLOGY/LYMPH: DO YOU TAKE ANY BLOOD THINNERS? (FOR EXAMPLE- COUMADIN, PLAVIX, AGGRENOX, PLATEL, PRADAXA, OR XARELTO) NO . WHEN WAS YOUR LAST DOSE? DATE: TIME: . NEUROLOGY: HAVE YOU FALLEN IN THE PAST 12 MONTHS? NO . ANY NEW EXTREMITY NUMBNESS OR WEAKNESS? NO . CARDIOLOGY: DO YOU HAVE A PACEMAKER OR DEFIBRILLATOR? NO . RESPIRATORY: HAVE YOU BEEN SICK IN THE PAST WEEK? NO . FEVER NO . FLU LIKE SYMPTOMS? NO . COUGH NO . INTEGUMENTARY: DO YOU HAVE ANY RASHES OR OPEN SORES? NO . ALLERGIC/IMMUNO: ARE YOU ALLERGIC TO IV DYE? NO . ANY NEW ALLERGIES? NO . PSYCHIATRIC: DO YOU HAVE THOUGHTS OF HURTING YOURSELF OR SOMEONE ELSE? NO . ARE YOU ABUSED, NEGLECTED, OR IN AN UNSAFE ENVIRONMENT? NO . ENDOCRINOLOGY: ARE YOU DIABETIC? NO . OTHER: DO YOU NEED ANY PRESCRIPTIONS? NO . IF YES, PLEASE LIST: ____ . ANY NEW PROBLEMS WITH YOUR MEDICATIONS? NO . WHEN DID YOU LAST EAT? ____ 2300 . WHEN DID YOU LAST DRINK? ____02-17-19 0900 . WHAT DID YOU LAST DRINK? ____WATER . NAME OF PERSON DRIVING YOU HOME? ____CAB . DO YOU HAVE ANY OTHER QUESTIONS OR CONCERNS NO . VITAL SIGNS WT 275.8 LBS, HT 72 IN, BMI 37.40 INDEX, BP 136/91 MM HG, HR 77 /MIN, RR 16 /MIN, TEMP 96.8 F, OXYGEN SAT % 97%, SAFE IN ENV? (Y/N) YES, NA INITIALS MA 11:26, REVIEWED BY: KG. ASSESSMENTS INTERVERTEBRAL DISC DISORDERS WITH RADICULOPATHY, LUMBAR REGION - M51.16 (PRIMARY) TREATMENT INTERVERTEBRAL DISC DISORDERS WITH RADICULOPATHY, LUMBAR REGION [facility] FLUORO GUIDE SPINE INJECTION (PAIN)[id number] PROCEDURES PRE PROCEDURE DIAGNOSIS LUMBAR DISC DISORDER WITH RADICULOPATHY POST PROCEDURE DIAGNOSIS LUMBAR DISC DISORDER WITH RADICULOPATHY PROCEDURE LUMBAR EPIDURAL STEROID INJECTION UNDER FLUOROSCOPIC GUIDANCE SURGEON DR. PURA GORE TELECOM ANALYST NONE ANESTHESIA LOCAL PRE PROCEDURE NOTE THE PATIENT HAS A HISTORY OF CHRONIC LOW BACK PAIN. I EVALUATED THE PATIENT AND REVIEWED THE CHART. I WENT OVER THE RISKS, ALTERNATIVES, AND BENEFITS ASSOCIATED WITH THIS PROCEDURE. THE PATIENT WOULD LIKE TO PROCEED AND GIVE CONSENT TO PERFORMED THE PROCEDURE. THE PATIENT DENIES UNEXPLAINABLE WEIGHT LOSS, FEVER, CHILLS, OR NEW CHANGES IN URINARY OR BOWEL CONTROL. DESCRIPTION OF PROCEDURE THE PATIENT WAS BROUGHT TO THE PROCEDURE ROOM AND PLACED IN THE PRONE POSITION. THE LUMBOSACRAL AREA WAS CLEANED WITH BETADINE SOLUTION AND DRAPED ASEPTICALLY. THE PROCEDURE WAS DONE UNDER STERILE CONDITIONS. I CHECKED LATERALITY AND THE LEVEL WHERE THE PROCEDURE WAS GOING TO BE PERFORMED WITH THE PATIENT AND THE SUPPORTING STAFF AT THE MOMENT OF THE TIME OUT IN THE PROCEDURE ROOM. UNDER FLUOROSCOPIC GUIDANCE, THE TARGET POINT WAS SELECTED AT THE INTERLAMINAR LEVEL OF L4-L5, . LIDOCAINE WAS USED TO NUMB THE SKIN AND THE SUBCUTANEOUS TISSUE BELOW IT. EPIDURAL TUOHY NEEDLE, 17-GAUGE, WAS ADVANCED UNDER FLUOROSCOPIC GUIDANCE AND FOLLOWING PATIENT FEEDBACK UNTIL THE EPIDURAL SPACE WAS REACHED, 7 CM DEEP INTO THE SKIN BY THE LOSS OF RESISTANCE TECHNIQUE. ISOVUE M DYE 30%, 0.25 ML, WAS INJECTED SHOWING ADEQUATE SPREAD OF THE DYE. THEN, A SOLUTION OF 3 ML OF NORMAL SALINE WITH DEPO-MEDROL 60 MG WAS INJECTED SLOWLY FOLLOWING PATIENT FEEDBACK. THERE WAS NO EVIDENCE OF BLOOD, PARESTHESIA OR CEREBROSPINAL FLUID DURING THE PROCEDURE. THE PATIENT WAS SENT TO THE RECOVERY ROOM. THE PATIENT WAS MOVING THE EXTREMITIES AND DOING WELL. THERE WAS NO COMPLICATION DURING THE PROCEDURE. FLUOROSCOPY TIME WAS 4 SECONDS. POST PROCEDURE NOTE THE PATIENT WILL BE SEEN IN A FOLLOW UP IN THE NEXT FEW WEEKS. INSTRUCTIONS WERE GIVEN, QUESTIONS WERE ANSWERED, AND THE PATIENT EXPRESSED UNDERSTANDING AND AGREES WITH THE PLAN. I, ERIN CLARK, DOCUMENTED THE ABOVE INFORMATION ACTING A SCRIBE FOR DR. GORE. I HAVE REVIEWED THE ABOVE DOCUMENT, WRITTEN BY ERIN CLARK SCRIBE AND I VERIFY THAT IT IS ACCURATE. PROCEDURE CODES 36304 LUMBAR/SACRAL W/ IMAGING 6045F RADXPS IN END [id number] PXD DISPOSITION & COMMUNICATION FOLLOW UP 2 WEEKS ELECTRONICALLY SIGNED BY PURA GORE MD, MD ON 02/27/2019 AT 12:21 PM EDT DISCLAIMER : THIS IS A VISIT SUMMARY EXTRACTED FROM THE [employer] CHART. IT IS NOT A COPY OF THE [employer] PROGRESS NOTE. HILARY
== END ==
LOC: M PAIN 11:30
PROVIDERS: ATTEND Anesthesiology
DX: M51.16 Intervertebral disc disorders with radiculopathy, lumbar region (principal); F17.210 Nicotine dependence, cigarettes, uncomplicated; Z79.891 Long term (current) use of opiate analgesic; Z79.899 Other long term (current) drug therapy
CPT/HCPCS: 62323; J1030; Q9967

== ENCOUNTER → 2019-03-08 | Outpatient (CLI) | payer OTHER ==
[~2019-03-08] MED LIST changes: -ISOVUE-M 300 61% 15ML VIAL (Q9967) As Ordered ONE; -LIDOCAINE 1% SDV INJ 30 ML VIAL As Ordered ONE; -diazePAM 5 MG TAB As Ordered ONE; -methylPREDNISolone SUSP 40 MG/ML (DEPO-medrol) VIAL (J1030) As Ordered ONE; -oxyCODONE 5MG TAB As Ordered ONE
== END ==
LOC: M PAIN 09:45
PROVIDERS: ATTEND Family Medicine
DX: M51.16 Intervertebral disc disorders with radiculopathy, lumbar region (principal); F17.210 Nicotine dependence, cigarettes, uncomplicated; Z79.899 Other long term (current) drug therapy

== ENCOUNTER → 2019-06-07 | Outpatient (CLI) | payer OTHER ==
[2019-06-07 14:00] LABS: BASO % 0.6 % (0.0-1.0); EOS # 0.3 10^3/uL (0.0-0.5); EOS % 3.6 % (0.0-3.0); HEMATOCRIT 45.2 % (42.0-52.0); LYMPH # 2.8 10^3/uL (1.5-5.0); MEAN CORPUSCULAR HEMOGLOBIN 31.1 pg (27.0-33.0); MEAN CORPUSCULAR HGB CONC 33.2 g/dl (32.0-36.5); MEAN CORPUSCULAR VOLUME 93.6 fl (80.0-96.0); MONO # 0.6 10^3/uL (0.0-0.8); NEUTROPHILS # 3.3 10^3/uL (1.5-8.5); NEUTROPHILS % 47.5 % (36.0-66.0); PLATELET COUNT, AUTOMATED 372 10^3/uL (150-450); RED BLOOD COUNT 4.83 10^6/uL (4.30-6.10)
[2019-06-07 14:36] LABS: ALBUMIN 4.2 GM/DL (3.2-5.2); ALT/SGPT 30 U/L (12-78); BILIRUBIN,TOTAL 0.5 MG/DL (0.2-1.0); BLOOD UREA NITROGEN 13 MG/DL (7-18); CALCIUM LEVEL 9.1 MG/DL (8.5-10.1); CARBON DIOXIDE LEVEL 26 MEQ/L (21-32); CHLORIDE LEVEL 107 MEQ/L (98-107); CHOLESTEROL LEVEL 248 MG/DL (<200); CHOLESTEROL RISK RATIO 6.358 (<5); CREATININE FOR GFR 0.81 MG/DL (0.70-1.30); GLOMERULAR FILTRATION RATE > 60.0 (>60); GLUCOSE, FASTING 96 MG/DL (70-100); HDL CHOLESTEROL 39 MG/DL (>40); LDL CHOLESTEROL 172 MG/DL (<100); NON-HDL-C 209 MG/DL; POTASSIUM SERUM 4.5 MEQ/L (3.5-5.1); SODIUM LEVEL 141 MEQ/L (136-145); TOTAL PROTEIN 7.3 GM/DL (6.4-8.2); TRIGLYCERIDES LEVEL 183 MG/DL (<150)
[2019-06-07 14:38] LABS: TOTAL 25(OH) VITAMIN D 18.2 NG/ML (30.0-100.0)
[2019-06-07 15:03] LABS: HEMOGLOBIN A1c 5.7 %
== END ==
LOC: M LAB 13:15
PROVIDERS: ATTEND Nurse Practitioner Family
DX: R03.0 Elevated blood-pressure reading, without diagnosis of hypertension (principal); Z13.9 Encounter for screening, unspecified

== ENCOUNTER 2019-06-08 09:22 | Emergency (ER) | payer OTHER ==
[~2019-06-08] VITALS: Ht 188 cm; Wt 119.3 kg
[2019-06-08 09:54] LABS: BASO % 0.5 % (0.0-1.0); EOS # 0.3 10^3/uL (0.0-0.5); EOS % 3.6 % (0.0-3.0); HEMATOCRIT 43.1 % (42.0-52.0); HEMOGLOBIN 14.3 g/dl (13.5-17.5); LYMPH # 4.1 10^3/uL (1.5-5.0); LYMPH % 46.6 % (24.0-44.0); MEAN CORPUSCULAR HEMOGLOBIN 31.2 pg (27.0-33.0); MEAN CORPUSCULAR HGB CONC 33.2 g/dl (32.0-36.5); MEAN CORPUSCULAR VOLUME 94.1 fl (80.0-96.0); MONO # 0.8 10^3/uL (0.0-0.8); MONO % 9.4 % (0.0-5.0); NEUTROPHILS # 3.5 10^3/uL (1.5-8.5); NEUTROPHILS % 39.7 % (36.0-66.0); PLATELET COUNT, AUTOMATED 345 10^3/uL (150-450); RED BLOOD COUNT 4.58 10^6/uL (4.30-6.10); WHITE BLOOD COUNT 8.8 10^3/uL (4.0-10.0)
[2019-06-08 10:04] LABS: INR 0.93; PROTHROMBIN TIME 12.2 SECONDS (11.8-14.0)
[2019-06-08 10:05] LABS: PARTIAL THROMBOPLASTIN TIME 30.6 SECONDS (25.0-38.4)
--- NOTE | 2019-06-08 10:05 | REP ---
Portable chest x-ray: Two views. History: Chest pain. Findings: Monitoring electrodes are seen. The lungs are well inflated and clear. Pleural angles are sharp. Heart size is normal. Pulmonary vasculature is not increased. No significant bony abnormality. Impression: Negative portable chest x-ray. Electronically Signed by Pako Jones MD 06/08/2019 09:56 A
--- NOTE | 2019-06-08 10:21 | ECGEPIP ---
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
[2019-06-08 10:52] LABS: ALBUMIN 4.2 GM/DL (3.2-5.2); ALT/SGPT 37 U/L (12-78); BILIRUBIN,DIRECT < 0.1 MG/DL (0.0-0.2); BILIRUBIN,TOTAL 0.4 MG/DL (0.2-1.0); BLOOD UREA NITROGEN 12 MG/DL (7-18); CALCIUM LEVEL 8.8 MG/DL (8.5-10.1); CARBON DIOXIDE LEVEL 22 MEQ/L (21-32); CHLORIDE LEVEL 108 MEQ/L (98-107); CK-MB VALUE MASS 1.6 NG/ML (<3.6); CPK CREATINE PHOSPHOKINASE 235 U/L (39-308); CREATININE FOR GFR 0.78 MG/DL (0.70-1.30); FREE T4 1.17 NG/DL (0.76-1.46); GLOMERULAR FILTRATION RATE > 60.0 (>60); GLUCOSE, FASTING 88 MG/DL (70-100); LIPASE 158 U/L (73-393); MAGNESIUM LEVEL 2.1 MG/DL (1.8-2.4); MB/CK RELATIVE INDEX 0.68 (< OR =4); SODIUM LEVEL 141 MEQ/L (136-145); TOTAL PROTEIN 7.6 GM/DL (6.4-8.2); TROPONIN I < 0.02 NG/ML (< 0.10)
[2019-06-08 12:06] LABS: AMPHETAMINES LEVEL URINE NEGATIVE (NEGATIVE); BARBITURATES URINE NEGATIVE (NEGATIVE); BENZODIAZEPINES URINE NEGATIVE (NEGATIVE); CANNABINOIDS URINE NEGATIVE (NEGATIVE); COCAINE METABOLITE URINE NEGATIVE (NEGATIVE); METHADONE URINE NEGATIVE (NEGATIVE); OPIATES URINE NEGATIVE (NEGATIVE); PHENCYCLIDINE URINE NEGATIVE (NEGATIVE)
[2019-06-08 13:25] VITALS: BP 125/63
== END 2019-06-08 13:26 | disposition home or self-care (01) ==
LOC: M ED 09:22
DX: I49.3 Ventricular premature depolarization (principal); R94.31 Abnormal electrocardiogram [ECG] [EKG]; F41.9 Anxiety disorder, unspecified; F32.9 Major depressive disorder, single episode, unspecified; F17.200 Nicotine dependence, unspecified, uncomplicated; Z79.899 Other long term (current) drug therapy

== ENCOUNTER → 2019-06-08 | Outpatient (CLI) | payer OTHER ==
--- NOTE | 2019-06-10 04:41 | ECWPNPC ---
PATIENT NAME: DANAE TURCIOS : 1980 GENDER: MALE VISIT DATE: 06/08/2019 DISCHARGE DATE: 06/08/19 1012 VISIT LOCKED DATE TIME: PHYSICIAN: RAVINDER ZIMMER RESOURCE: RAVINDER ZIMMER REASON FOR APPOINTMENT 1. LOW BACK HISTORY OF PRESENT ILLNESS HISTORY OF PRESENT ILLNESS: PAIN THE PATIENT DESCRIBES THE PAIN... 38-YEAR-OLD MALE WHO IS IN FOR CHRONIC PAIN FOLLOW-UP NOTED TO HAVE HEART RATE IN THE 40S AND ELEVATED BP. PATIENT ALSO NOTED TO HAVE AN IRREGULAR HEART RATE. FALL RISK SCREENING: SCREENING :NO FALLS REPORTED IN THE LAST YEAR CURRENT MEDICATIONS TAKING GABAPENTIN 600 MG TABLET 1 CAPSULE ORALLY THREE TIMES DAILY TAKING DULOXETINE HCL 60 MG CAPSULE DELAYED RELEASE PARTICLES 1 CAPSULE ORALLY ONCE A DAY NOT-TAKING CYCLOBENZAPRINE HCL 10 MG TABLET 1 TABLET NEEDED ORALLY Q8H PRN FOR SEVERE PAIN EPISODES NOT-TAKING NORCO 5-325 MG TABLET 1 TABLET NEEDED ORALLY EVERY 6 HRS MDD4 NOT-TAKING NORCO 5-325 MG TABLET 1 TABLET NEEDED ORALLY Q12H PRN MDD2, NOTES: 2200 YESTERDAY NOT-TAKING CYCLOBENZAPRINE HCL 10 MG TABLET 1 TABLET ORALLY BEFORE BEDTIME, NOTES: 2200 YESTERDAY MEDICATION LIST REVIEWED AND RECONCILED WITH THE PATIENT PAST MEDICAL HISTORY CHRONIC BACK PAIN ALLERGIES N.K.D.A. SURGICAL HISTORY RIGHT KNEE ORTHOSCOPIC 1991 RIGHT BROKEN/PLATE ANKLE 2016 FAMILY HISTORY PATERNAL GRAND MOTHER: DIAGNOSED WITH OTHER MALIGNANT NEOPLASM OF UNSPECIFIED SITE MATERNAL GRAND FATHER: OTHER MALIGNANT NEOPLASM OF UNSPECIFIED SITE MATERNAL GRAND MOTHER: DIABETES SOCIAL HISTORY GENERAL: TOBACCO USE ARE YOU A:CURRENT SMOKER ARE YOU INTERESTED IN QUITTING?THINKING ABOUT QUITTING WOULD LIKE TO QUIT BUT DOESN'T SEE IT HAPPENING ANYTIME SOON. COUNSELED THE PATIENT ON SMOKING CESSATION, EDUCATION [id number]/2020 PATIENT COUNSELED ON THE DANGERS OF TOBACCO USE AND URGED TO QUIT:02/17/2019 PAIN CLINIC PFS, CLERGY, PUBLIC HEALTH REFERRALS PFS REFERRAL NEEDED?NO CLERGY REFERRAL NEEDED?NO PUBLIC HEALTH REFERRAL NEEDED?NO WAS THE PROVIDER NOTIFIED OF ANY PERTINENT INFO?NO HAS THE PATIENT BEEN EDUCATED REGARDING HIS/HER PLAN OF CARE?YES HAS THE PATIENT BEEN EDUCATED REGARDING PAIN, THE RISK FOR PAIN, THE IMPORTANCE OF EFFECTIVE PAIN MANAGEMENT, AND THE PAIN ASSESSMENT PROCESS?YES LATEX QUESTIONNAIRE LATEX ALLERGY : HAVE YOU EVER DEVELOPED ANY TYPE OF REACTION AFTER HANDLING LATEX PRODUCTS SUCH RUBBER GLOVES, CONDOMS, DIAPHRAGMS, BALLOONS, SOCKS, OR UNDERWEAR?NO LATEX ALLERGY : HAVE YOU EVER DEVELOPED ANY TYPE OF REACTION DURING OR AFTER DENTAL APPOINTMENT, VAGINAL/RECTAL EXAMINATION, SURGICAL PROCEDURE, OR ANY OTHER EXPOSURE?NO LATEX RISK : HAVE YOU EVER HAD ANY DIFFICULTY BREATHING OR HIVES AFTER EATING OR HANDLING ANY FRUITS, OR VEGETABLES; SUCH KIWI, BANANAS, STONE FRUITS, OR CHESTNUTSNO LATEX RISK : DO YOU HAVE A PREVIOUS PERSONAL HISTORY OF MORE THAN NINE SURGERIES, SPINA BIFIDA, OR REPEATED CATHERIZATIONS? NO LATEX RISK : ARE YOU FREQUENTLY EXPOSED TO LATEX PRODUCTS IN YOUR OCCUPATION?NO DATE ASKED : 06/08/2019 ADVANCE DIRECTIVE ADVANCE DIRECTIVE DISCUSSED WITH PATIENT:YES PT HAS HCP FOR SON DANAE TURCIOS LANGUAGE LANGUAGES SPOKEN:FAROESE ALCOHOL SCREENING DID YOU HAVE A DRINK CONTAINING ALCOHOL IN THE PAST YEAR?YES HOW OFTEN DID YOU HAVE SIX OR MORE DRINKS ON ONE OCCASION IN THE PAST YEAR?NEVER (0 POINTS) HOW MANY DRINKS DID YOU HAVE ON A TYPICAL DAY WHEN YOU WERE DRINKING IN THE PAST YEAR?1 OR 2 (0 POINTS) HOW OFTEN DID YOU HAVE A DRINK CONTAINING ALCOHOL IN THE PAST YEAR?TWO TO FOUR TIMES A MONTH (2 POINTS) POINTS2 INTERPRETATIONNEGATIVE RECREATIONAL DRUG USE DRUG USE?NO LEARNING BARRIERS / SPECIAL NEEDS BARRIERS TO LEARNING?NO HEARING IMPAIRED?NO VISION IMPAIRED?YES COGNITIVELY IMPAIRED?NO :CORRECTIVE LENSES READINESS TO LEARN?YES REVIEWED WITH PT 01/06/19 1416 BVREVIEWED WITH PATIENT 06/08/2019 0904 JS. HOSPITALIZATION/MAJOR DIAGNOSTIC PROCEDURE NONE OTHER THAN SURGERIES ABOVE REVIEW OF SYSTEMS REVIEWED BY: PROVIDER: PEGGY LAGUNAS . CONSTITUTIONAL: ANY CHANGE IN YOUR MEDICAL CONDITION? NO . CHILLS NO . FEVER NO . INFECTION: DO YOU HAVE NEW INFECTIONS? NO . DO YOU HAVE HISTORY OF MRSA? NO . MUSCULOSKELETAL: ANY NEW PATTERNS OF PAIN OR NUMBNESS? YES, STATES PAIN HAS GOTTEN WORSE - MAKING RIGHT SHOULDER PAIN WORSE AND RIGHT HAND NUMBNESS IS WORSENING . GASTROENTEROLOGY: ANY NEW CHANGE IN BOWEL CONTROL? NO . GENITOURINARY: ANY NEW CHANGE IN BLADDER CONTROL? NO . IS THERE A CHANCE YOU COULD BE ? NO . HEMATOLOGY/LYMPH: DO YOU TAKE ANY BLOOD THINNERS? (FOR EXAMPLE- COUMADIN, PLAVIX, AGGRENOX, PLATEL, PRADAXA, OR XARELTO) NO . WHEN WAS YOUR LAST DOSE? DATE: TIME: . NEUROLOGY: HAVE YOU FALLEN IN THE PAST 12 MONTHS? YES, STATES A FEW FALLS SINCE LAST VISIT. STATES HE PASSED OUT A FEW WEEKS AGO CAUSING A FALL. STATES NO ED VISIT . ANY NEW EXTREMITY NUMBNESS OR WEAKNESS? NO . CARDIOLOGY: DO YOU HAVE A PACEMAKER OR DEFIBRILLATOR? NO . RESPIRATORY: HAVE YOU BEEN SICK IN THE PAST WEEK? NO . FEVER NO . FLU LIKE SYMPTOMS? NO . COUGH NO . INTEGUMENTARY: DO YOU HAVE ANY RASHES OR OPEN SORES? NO . ALLERGIC/IMMUNO: ARE YOU ALLERGIC TO IV DYE? NO . ANY NEW ALLERGIES? NO . PSYCHIATRIC: DO YOU HAVE THOUGHTS OF HURTING YOURSELF OR SOMEONE ELSE? NO . ARE YOU ABUSED, NEGLECTED, OR IN AN UNSAFE ENVIRONMENT? NO . ENDOCRINOLOGY: ARE YOU DIABETIC? NO . OTHER: DO YOU NEED ANY PRESCRIPTIONS? YES . IF YES, PLEASE LIST: ____ . ANY NEW PROBLEMS WITH YOUR MEDICATIONS? NO . WHEN DID YOU LAST EAT? ____ . WHEN DID YOU LAST DRINK? ____ . WHAT DID YOU LAST DRINK? ____ . NAME OF PERSON DRIVING YOU HOME? ____ . DO YOU HAVE ANY OTHER QUESTIONS OR CONCERNS NO . VITAL SIGNS WT 264.0 LBS, HT 72 IN, BMI 35.80 INDEX, BP 170/77 MM HG, REPEAT BP 172/88 MANUAL, HR 40 /MIN, RR 18 /MIN, TEMP 97.9 F, OXYGEN SAT % 98%, SAFE IN ENV? (Y/N) YES, REVIEWED BY: SHANDA06/08/2019 DISCUSSED ELEVATED BP AND LOW HR WITH PATIENT. PATIENT HAS NO HISTORY OF EITHER. AUSCULTATED HEART SOUNDS - IRREGULAR. PATIENT HAS NO HISTORY OF THIS EITHER. STATES HE HAS BEEN DIZZY LATELY AND PASSED OUT ABOUT 3 WEEKS AGO. DISCUSSED WITH RAVINDER ZIMMER, HE WOULD LIKE PATIENT TO GO TO THE ER TO BE EVALUATED. PATIENT TO BE ESCORTED TO THE ED BY PAIN CENTER STAFF. JS. EXAMINATION GENERAL EXAMINATION: GENERALNO ACUTE DISTRESS, WELL NOURISHED AND HYDRATED. PSYCHAPPROPRIATE MOOD AND AFFECT . HEART:BRADYCARDIC AND IRREGULAR . ASSESSMENTS INTERVERTEBRAL DISC DISORDERS WITH RADICULOPATHY, LUMBAR REGION - M51.16 (PRIMARY) TREATMENT INTERVERTEBRAL DISC DISORDERS WITH RADICULOPATHY, LUMBAR REGION CLINICAL NOTES: 38-YEAR-OLD MALE IN FOR CHRONIC PAIN FOLLOW-UP. GIVEN PRESENTING SYMPTOMS AND RESULTS PHYSICAL EXAM NATION RECOMMENDED PATIENT GO TO THE ER FOR FURTHER EVALUATION. THE CHARGE NURSE WAS CALLED AND REPORT WAS GIVEN. PATIENT TRANSFERRED TO THE ER VIA WHEELCHAIR. PROCEDURE CODES FA211 ESTABILISHED PATIENT [facility] CHARGE DISPOSITION & COMMUNICATION FOLLOW UP 2 MONTHS (REASON: BACK PAIN) ELECTRONICALLY SIGNED BY NOHEMY NUNO ON 06/09/2019 AT 08:28 AM EST DISCLAIMER : THIS IS A VISIT SUMMARY EXTRACTED FROM THE [employer] CHART. IT IS NOT A COPY OF THE [employer] PROGRESS NOTE. HILARY
== END ==
LOC: M PAIN 09:00
PROVIDERS: ATTEND Family Medicine
DX: M51.16 Intervertebral disc disorders with radiculopathy, lumbar region (principal)

== ENCOUNTER → 2019-06-23 | Outpatient (REF) | payer OTHER | LOC: M LABDRAW1 15:40 | PROVIDERS: ATTEND Internal Medicine Cardiovascular Disease | DX: I49.3 Ventricular premature depolarization (principal) ==

== ENCOUNTER 2019-08-01 18:15 | Emergency (ER) | payer OTHER ==
[~2019-08-01] VITALS: Ht 188 cm; Wt 126.0 kg
[2019-08-01] MEDS ORDERED: ATOR40TA75 (18:24)
[2019-08-01 20:25] VITALS: BP 129/86
--- NOTE | 2019-08-02 02:42 | REP ---
Clinical: Pain. Technique: AP, lateral, bilateral oblique views of the right fifth digit. Findings: Lateral view best demonstrates a corner fracture at the base of the distal phalanx with disruption of the distal interphalangeal joint and overlying soft tissue swelling. Impression: Intra-articular fracture at the base of the fifth distal phalanx. Electronically Signed by Johnny Colon MD 08/02/2019 02:33 A
== END 2019-08-01 20:27 | disposition home or self-care (01) ==
LOC: M ED 18:15
DX: S62.636A Displaced fracture of distal phalanx of right little finger, initial encounter for closed fracture (principal); Y04.2XXA Assault by strike against or bumped into by another person, initial encounter; Y92.099 Unspecified place in other non-institutional residence as the place of occurrence of the external cause; Y93.9 Activity, unspecified; Y99.9 Unspecified external cause status; Z79.899 Other long term (current) drug therapy

== ENCOUNTER → 2019-08-31 | Outpatient (REF) | payer OTHER ==
[~2019-08-31] MED LIST changes: +ATOR40TA75
[2019-08-31 12:58] LABS: BASO % 0.4 % (0.0-1.0); EOS # 0.3 10^3/uL (0.0-0.5); EOS % 3.2 % (0.0-3.0); HEMATOCRIT 47.7 % (42.0-52.0); HEMOGLOBIN 15.8 g/dl (13.5-17.5); LYMPH # 3.5 10^3/uL (1.5-5.0); LYMPH % 45.4 % (24.0-44.0); MEAN CORPUSCULAR HEMOGLOBIN 31.1 pg (27.0-33.0); MEAN CORPUSCULAR HGB CONC 33.1 g/dl (32.0-36.5); MEAN CORPUSCULAR VOLUME 93.9 fl (80.0-96.0); MONO # 0.7 10^3/uL (0.0-0.8); MONO % 9.3 % (0.0-5.0); NEUTROPHILS # 3.2 10^3/uL (1.5-8.5); NEUTROPHILS % 41.4 % (36.0-66.0); PLATELET COUNT, AUTOMATED 375 10^3/uL (150-450); RED BLOOD COUNT 5.08 10^6/uL (4.30-6.10); WHITE BLOOD COUNT 7.8 10^3/uL (4.0-10.0)
[2019-08-31 13:52] LABS: ALBUMIN 4.1 GM/DL (3.2-5.2); ALT/SGPT 40 U/L (12-78); BILIRUBIN,TOTAL 0.3 MG/DL (0.2-1.0); BLOOD UREA NITROGEN 11 MG/DL (7-18); CALCIUM LEVEL 9.3 MG/DL (8.5-10.1); CARBON DIOXIDE LEVEL 28 MEQ/L (21-32); CHLORIDE LEVEL 107 MEQ/L (98-107); CHOLESTEROL LEVEL 164 MG/DL (<200); CREATININE FOR GFR 0.83 MG/DL (0.70-1.30); FREE T4 1.08 NG/DL (0.76-1.46); GLOMERULAR FILTRATION RATE > 60.0 (>60); GLUCOSE, FASTING 96 MG/DL (70-100); HDL CHOLESTEROL 41 MG/DL (>40); LDL CHOLESTEROL 96 MG/DL (<100); NON-HDL-C 123 MG/DL; POTASSIUM SERUM 4.4 MEQ/L (3.5-5.1); SODIUM LEVEL 142 MEQ/L (136-145); TOTAL 25(OH) VITAMIN D 19.9 NG/ML (30.0-100.0); TOTAL PROTEIN 7.7 GM/DL (6.4-8.2); TRIGLYCERIDES LEVEL 136 MG/DL (<150)
== END ==
LOC: M LAB REF 12:02
PROVIDERS: ATTEND Nurse Practitioner Family
DX: R73.03 Prediabetes (principal); F17.200 Nicotine dependence, unspecified, uncomplicated; E78.5 Hyperlipidemia, unspecified; Z13.9 Encounter for screening, unspecified; M54.5 Low back pain; R03.0 Elevated blood-pressure reading, without diagnosis of hypertension

== ENCOUNTER 2020-06-24 23:30 | Emergency (ER) | payer OTHER ==
[~2020-06-24] VITALS: Ht 188 cm; Wt 118.2 kg
[~2020-06-24 23:30] MED LIST changes: +GABA-282 PO; -GABA-843 PO
[2020-06-24 23:31] VITALS: BP 137/90
[2020-06-24] MEDS ORDERED: DULO1CAP6 (23:39)
--- OUTSIDE RECORDS SUMMARY | 2020-06-25 00:30 | CCD ---
Author Author [facility] Organization [facility] Address Unknown Phone Unavailable Care Team Providers Care Production Drilling Machine Operator Name Role Phone MOHITOL, Juan R HICKEY MD Unavailable Unavailable ANTECOL, Juan R HICKEY MD Unavailable Unavailable ANTECOL, Juan R HICKEY MD Unavailable Unavailable ANTECOL, Juan R HICKEY MD Unavailable Unavailable ANTECOL, Juan R HICKEY MD Unavailable Unavailable ANTECOLJuan R MD Unavailable Unavailable ANTECOLJuan R MD Unavailable Unavailable ANTECOLJuan R MD Unavailable Unavailable ANTECOLJuan R MD Unavailable Unavailable ANTECOLJuan R MD Unavailable Unavailable ANTECOLJuan R MD Unavailable Unavailable ANTECOLJuan R MD Unavailable Unavailable ANTECOLJuan R MD Unavailable Unavailable ANTECOLJuan R MD Unavailable Unavailable ANTECOLJuan R MD Unavailable Unavailable ANTECOLJuan R MD Unavailable Unavailable ANTECOLJuan R MD Unavailable Unavailable ANTECOLJuan R MD Unavailable Unavailable ANTECOLJuan R MD Unavailable Unavailable ANTECOLJuan R MD Unavailable Unavailable ANTECOLJuan R MD Unavailable Unavailable ANTECOLJuan R MD Unavailable Unavailable ANTECOLJuan R MD Unavailable Unavailable ANTECOLJuan R MD Unavailable Unavailable ANTECOLJuan R MD Unavailable Unavailable ANTECOLJuan R MD Unavailable Unavailable ANTECOLJuan R MD Unavailable Unavailable ANTECOLJuan R MD Unavailable Unavailable ANTECOLJuan R MD Unavailable Unavailable ANTECOLJuan R MD Unavailable Unavailable ANTECOLJuan R MD Unavailable Unavailable ANTECOL, Juan R HICKEY MD Unavailable Unavailable ANTECOL, Juan R HICKEY MD Unavailable Unavailable ANTECOL, Juan R HICKEY MD Unavailable Unavailable ANTECOL, Juan R HICKEY MD Unavailable Unavailable ANTECOL, Juan R HICKEY MD Unavailable Unavailable ANTECOL, Juan R HICKEY MD Unavailable Unavailable ANTECOL, Juan R HICKEY MD Unavailable Unavailable ANTECOL, Juan R HICKEY MD Unavailable Unavailable ANTECOL, Juan R HICKEY MD Unavailable Unavailable ANTECOL, Juan R HICKEY MD Unavailable Unavailable ANTECOL, Juan R HICKEY MD Unavailable Unavailable ANTECOL, Juan R HICKEY MD Unavailable Unavailable ANTECOL, Juan R HICKEY MD Unavailable Unavailable ANTECOL, Juan R HICKEY MD Unavailable Unavailable ANTECOL, Juan R HICKEY MD Unavailable Unavailable ANTECOL, Juan R HICKEY MD Unavailable Unavailable ANTECOL, Juan R HICKEY MD Unavailable Unavailable ANTECOL, Juan R HICKEY MD Unavailable Unavailable ANTECOL, Juan R HICKEY MD Unavailable Unavailable ANTECOL, Juan R HICKEY MD Unavailable Unavailable ANTECOL, Juan R HICKEY MD Unavailable Unavailable ANTECOL, Juan R HICKEY MD Unavailable Unavailable ANTECOL, Juan R HICKEY MD Unavailable Unavailable ANTECOL, Juan R HICKEY MD Unavailable Unavailable Long, Vitaliy Swanson MD Unavailable Unavailable Long, Vitaliy Swanson MD Unavailable Unavailable Long, Vitaliy Swanson MD Unavailable Unavailable Long, Vitaliy Swanson MD Unavailable Unavailable Long, Vitaliy Swanson MD Unavailable Unavailable Long, Vitaliy Swanson MD Unavailable Unavailable Long, Vitaliy Swanson MD Unavailable Unavailable Long, Vitaliy Swanson MD Unavailable Unavailable Long, Vitaliy Swanson MD Unavailable Unavailable Long, Vitaliy Swanson MD Unavailable Unavailable Long, Vitaliy Swanson MD Unavailable Unavailable Long, Vitaliy Swanson MD Unavailable Unavailable Long, Vitaliy Swanson MD Unavailable Unavailable Long, Vitaliy Swanson MD Unavailable Unavailable Long, Vitaliy Swanson MD Unavailable Unavailable Long, Vitaliy Swanson MD Unavailable Unavailable Long, Vitaliy Swanson MD Unavailable Unavailable Long, Vitaliy Swanson MD Unavailable Unavailable Long, Vitaliy Swanson MD Unavailable Unavailable Long, Vitaliy Swanson MD Unavailable Unavailable Long, Vitaliy Swanson MD Unavailable Unavailable Long, Vitaliy Swanson MD Unavailable Unavailable Long, Vitaliy Swanson MD Unavailable Unavailable Long, Vitaliy Swanson MD Unavailable Unavailable Long, Vitaliy Swanson MD Unavailable Unavailable Long, Vitaliy Swanson MD Unavailable Unavailable Long, Vitaliy Swanson MD Unavailable Unavailable Long, Vitaliy Swanson MD Unavailable Unavailable Long, Vitaliy Swanson MD Unavailable Unavailable Long, Vitaliy Swanson MD Unavailable Unavailable Long, Vitaliy Swanson MD Unavailable Unavailable Long, Vitaliy Swanson MD Unavailable Unavailable Long, Vitaliy Swanson MD Unavailable Unavailable Long, Vitaliy Swanson MD Unavailable Unavailable Long, Vitaliy Swanson MD Unavailable Unavailable Long, Vitaliy Swanson MD Unavailable Unavailable Long, Vitaliy Swanson MD Unavailable Unavailable Long, Vitaliy Swanson MD Unavailable Unavailable Long, Vitaliy Swanson MD Unavailable Unavailable Long, L Sky MD Unavailable Unavailable Vitaliy Long MD Unavailable Unavailable Vitaliy Long MD Unavailable Unavailable Vitaliy Long MD Unavailable Unavailable Vitaliy Long MD Unavailable Unavailable Vitaliy Long MD Unavailable Unavailable Vitaliy Long MD Unavailable Unavailable Vitaliy Long MD Unavailable Unavailable Margi Avila MD Unavailable Unavailable Margi Avila MD Unavailable Unavailable Margi Avila MD Unavailable Unavailable Margi Avila MD Unavailable Unavailable Margi Avila MD Unavailable Unavailable Margi Avila MD Unavailable Unavailable Margi Avila MD Unavailable Unavailable Margi Avila MD Unavailable Unavailable Margi Avila MD Unavailable Unavailable Margi Avila MD Unavailable Unavailable Margi Avila MD Unavailable Unavailable Margi Avila MD Unavailable Unavailable Margi Avila MD Unavailable Unavailable Margi Avila MD Unavailable Unavailable Margi Avila MD Unavailable Unavailable Margi Avila MD Unavailable Unavailable Margi Avila MD Unavailable Unavailable Margi Avila MD Unavailable Unavailable Margi Avila MD Unavailable Unavailable Margi Avila MD Unavailable Unavailable Margi Avila MD Unavailable Unavailable Margi Avila MD Unavailable Unavailable Margi Avila MD Unavailable Unavailable Margi Avila MD Unavailable Unavailable Margi Avila MD Unavailable Unavailable Margi Avila MD Unavailable Unavailable Margi Avila MD Unavailable Unavailable Margi Avila MD Unavailable Unavailable Margi Avila MD Unavailable Unavailable Margi Avila MD Unavailable Unavailable Margi Avila MD Unavailable Unavailable Margi Avila MD Unavailable Unavailable Margi Avila MD Unavailable Unavailable Margi Avila MD Unavailable Unavailable Margi Avila MD Unavailable Unavailable Margi Avila MD Unavailable Unavailable Margi Avila MD Unavailable Unavailable Margi Avila MD Unavailable Unavailable Margi Avila MD Unavailable Unavailable Margi Avila MD Unavailable Unavailable Margi Avila MD Unavailable Unavailable Margi Avila MD Unavailable Unavailable Margi Avila MD Unavailable Unavailable Margi Avila MD Unavailable Unavailable Margi Avila MD Unavailable Unavailable Margi Avila MD Unavailable Unavailable Marig Avila MD Unavailable Unavailable Margi Avila MD Unavailable Unavailable Margi Avila MD Unavailable Unavailable Margi Avila MD Unavailable Unavailable Margi Avila MD Unavailable Unavailable Margi Avila MD Unavailable Unavailable Margi Avila MD Unavailable Unavailable Margi Avila MD Unavailable Unavailable Margi Avila MD Unavailable Unavailable Margi Avila MD Unavailable Unavailable Margi Avila MD Unavailable Unavailable Margi Avila MD Unavailable Unavailable Margi Avila MD Unavailable Unavailable Margi Avila MD Unavailable Unavailable Margi Avila MD Unavailable Unavailable Margi Avila MD Unavailable Unavailable Margi Avila MD Unavailable Unavailable Margi Avila MD Unavailable Unavailable Margi Avila MD Unavailable Unavailable Margi Avila MD Unavailable Unavailable Margi Avila MD Unavailable Unavailable Margi Avila MD Unavailable Unavailable Margi Avila MD Unavailable Unavailable Margi Avila MD Unavailable Unavailable Margi Avila MD Unavailable Unavailable Margi Avila MD Unavailable Unavailable Mragi Avila MD Unavailable Unavailable Margi Avila MD Unavailable Unavailable Margi Avila MD Unavailable Unavailable Margi Avila MD Unavailable Unavailable Margi Avila MD Unavailable Unavailable Margi Avila MD Unavailable Unavailable Margi Avila MD Unavailable Unavailable Margi Avila MD Unavailable Unavailable Margi Avila MD Unavailable Unavailable Margi Avila MD Unavailable Unavailable Margi Avila MD Unavailable Unavailable Margi Avila MD Unavailable Unavailable Margi Avila MD Unavailable Unavailable Margi Avila MD Unavailable Unavailable Margi Avila MD Unavailable Unavailable Margi Avila MD Unavailable Unavailable Margi Avila MD Unavailable Unavailable Rashmi Underwood STENOTYPE OPERATOR STENOTYPE OPERATOR Unavailable Unavailable Meño Bonner MD Unavailable Unavailable Meño Bonner MD Unavailable Unavailable Meño Bonner MD Unavailable Unavailable Meño Bonner MD Unavailable Unavailable Meño Bonner MD Unavailable Unavailable Meño Bonner MD Unavailable Unavailable Meño Bonner MD Unavailable Unavailable Meño Bonner MD Unavailable Unavailable Meño Bonner MD Unavailable Unavailable Meño Bonner MD Unavailable Unavailable Meño Bonner MD Unavailable Unavailable Meño Bonner MD Unavailable Unavailable Meño Bonner MD Unavailable Unavailable Meño oBnner MD Unavailable Unavailable Meño Bonner MD Unavailable Unavailable Meño Bonner MD Unavailable Unavailable Meño Bonner MD Unavailable Unavailable Meño Bonner MD Unavailable Unavailable Meño Bonner MD Unavailable Unavailable Meño Bonner MD Unavailable Unavailable Meño Bonner MD Unavailable Unavailable Meño Bonner MD Unavailable Unavailable Meño Bonner MD Unavailable Unavailable Tom-Santa, E Eleuteriolyric VERDUZCO Unavailable Unavailable Tom-Santa, E Eleuterio MD Unavailable Unavailable Tom-Santa, E Eleuterio MD Unavailable Unavailable Tom-Santa, E Eleuterio MD Unavailable Unavailable Tom-Santa, E Eleuterio MD Unavailable Unavailable Tom-Santa, E Eleuterio MD Unavailable Unavailable Tom-Santa, E Eleuterio MD Unavailable Unavailable Tom-Santa, E Eleuterio MD Unavailable Unavailable Tom-Santa, E Eleuterio MD Unavailable Unavailable Tom-Santa, E Eleuterio MD Unavailable Unavailable Tom-Santa, E Eleuterio MD Unavailable Unavailable Tom-Santa, E Eleuterio MD Unavailable Unavailable Tom-Santa, E Eleuterio MD Unavailable Unavailable Kj, A Rashmi STENOTYPE OPERATOR Unavailable Unavailable Kj, A Rashmi STENOTYPE OPERATOR Unavailable Unavailable Kj, A Rashmi STENOTYPE OPERATOR Unavailable Unavailable Kj, A Rashmi STENOTYPE OPERATOR Unavailable Unavailable Kj, A Rashmi STENOTYPE OPERATOR Unavailable Unavailable Kj, A Rashmi STENOTYPE OPERATOR Unavailable Unavailable Kj, A Rashmi STENOTYPE OPERATOR Unavailable Unavailable Kj, A Rashmi STENOTYPE OPERATOR Unavailable Unavailable Kj, A Rashmi STENOTYPE OPERATOR Unavailable Unavailable Kj, A Rashmi STENOTYPE OPERATOR Unavailable Unavailable Kj, A Rashmi STENOTYPE OPERATOR Unavailable Unavailable Kj, A Rashmi STENOTYPE OPERATOR Unavailable Unavailable Kj, A Rashmi STENOTYPE OPERATOR Unavailable Unavailable Kj, A Rashmi STENOTYPE OPERATOR Unavailable Unavailable Kj, A Rashmi STENOTYPE OPERATOR Unavailable Unavailable Kj, A Rashmi STENOTYPE OPERATOR Unavailable Unavailable Kj, A Rashmi STENOTYPE OPERATOR Unavailable Unavailable Kj, A Rashmi STENOTYPE OPERATOR Unavailable Unavailable Kj, A Rashmi STENOTYPE OPERATOR Unavailable Unavailable Kj, A Rashmi STENOTYPE OPERATOR Unavailable Unavailable Kj, A Rashmi STENOTYPE OPERATOR Unavailable Unavailable Kj, A Rashmi STENOTYPE OPERATOR Unavailable Unavailable Kj, A Rashmi STENOTYPE OPERATOR Unavailable Unavailable Kj, A Rashmi STENOTYPE OPERATOR Unavailable Unavailable Kj, A Rashmi STENOTYPE OPERATOR Unavailable Unavailable Kj, A Rashmi STENOTYPE OPERATOR Unavailable Unavailable Kj, A Rashmi STENOTYPE OPERATOR Unavailable Unavailable Kj, A Rashmi STENOTYPE OPERATOR Unavailable Unavailable Re-disclosure Warning The records that you are about to access may contain information from federally-assisted alcohol or drug abuse programs. If such information is present, then the following federally mandated warning applies: This information has been disclosed to you from records protected by federal confidentiality rules (42 CFR part 2). The federal rules prohibit you from making any further disclosure of this information unless further disclosure is expressly permitted by the written consent of the person to whom it pertains or as otherwise permitted by 42 CFR part 2. A general authorization for the release of medical or other information is NOT sufficient for this purpose. The Federal rules restrict any use of the information to criminally investigate or prosecute any alcohol or drug abuse patient.The records that you are about to access may contain highly sensitive health information, the redisclosure of which is protected by Article 27-F of the [facility] Public Health law. If you continue you may have access to information: Regarding HIV / AIDS; Provided by facilities licensed or operated by the [facility] Office of Mental Health; or Provided by the [facility] Office for People With Developmental Disabilities. If such information is present, then the following [facility] mandated warning applies: This information has been disclosed to you from confidential records which are protected by state law. State law prohibits you from making any further disclosure of this information without the specific written consent of the person to whom it pertains, or as otherwise permitted by law. Any unauthorized further disclosure in violation of state law may result in a fine or mcfp sentence or both. A general authorization for the release of medical or other information is NOT sufficient authorization for further disc losure. Family History Family Member Name Family Member Gender Family Member Status Date o f Status Description Data Source(s) Unknown Female Problem [facility] ([facility]) Encounters Encounter Providers Location Date Indications Data Source(s ) [facility]: [facility] 01:08:02 A M EDT [facility] Outpatient Attender: Rashmi Underwood [facility] 11/28/2019 01:0 8:01 AM EDT [facility]: [facility] 11/01/2019 07:48:27 P M EDT [facility]: [facility] 09/29/2019 06:38:00 A M EDT [facility]: [facility] 09/10/2019 10:3 5:00 AM EDT [facility]: [facility] 09/07/2019 05:4 9:01 PM EDT [facility] Outpatient Attender: Rashmi SLATER [facility] 09/07/2019 04:3 9:01 PM EDT [facility] Outpatient Attender: NOHEMY [facility]ATER [facility] 09/07/2019 04:39:00 P M EDT [facility] Outpatient Attender: NOHEMY SLATER [facility] 08/31/2019 09:34:00 A M EDT [facility] Outpatient Attender: Rashmi SLATER FP 08/31/2019 08:2 4:01 AM EDT [facility] Outpatient Attender: NOHEMY SLATER FP 08/30/2019 03:29:00 P M EDT [facility] Outpatient Referrer: Sky Long MD 08/24/2019 06:25:00 AM EDT [facility] Outpatient Referrer: Sky Long MD 06/27/2019 08:47:00 PM EST [facility] Outpatient Attender: Rashmi SLATER FP 06/25/2019 05:3 9:01 PM [facility] Outpatient Attender: NOHEMY SLATER FP 06/25/2019 05:39:00 P M [facility] Outpatient Attender: Rashmi SLATER FP 06/25/2019 05:3 8:01 PM [facility] Outpatient Attender: NOHEMY SLATER FP 06/25/2019 05:38:00 P M [facility] Outpatient Attender: RUPERTO KENDRICK MD Main Office 06/23/2019 11:30:00 AM [facility] Outpatient Attender: Rashmi SLATER FP 06/12/2019 09:3 0:01 PM [facility] Outpatient Attender: NOHEMY SLATER FP 06/10/2019 04:00:01 P M [facility] Outpatient Attender: NOHEMY SLATER FP 06/10/2019 03:59:01 P M [facility] Outpatient Attender: NOHEMY SLATER FP 06/09/2019 06:38:01 P M [facility] Outpatient Attender: NOHEMY SLATER FP 06/09/2019 05:18:00 P M [facility] [address] [place] [id number] 06/08/2019 12:00:00 AM EST eCW1 ([facility]) Outpatient Attender: STENOTYPE OPERATORHugo [facility] 06/07/2019 04:06:00 P M [facility] Outpatient Attender: NOHEMY Underwood [facility] 06/06/2019 10:59:01 A M [facility] Outpatient Attender: NOHEMY Underwood [facility] 06/01/2019 11:55:00 A M [facility] Outpatient Attender: Rashmi Underwood [facility] 06/01/2019 11:5 3:02 AM [facility] Outpatient Attender: NOHEMY Underwood [facility] 06/01/2019 11:52:00 A M [facility] Outpatient Attender: Mich Avila MD 05/08/2019 07:22:01 PM [facility] Recurring Patient Referrer: Eleuterio Bonner MD 02/2019 08:28:39 AM EST [facility] Outpatient Attender: Mich Avila MD 05/03/2019 08:28:01 AM [facility] Recurring Patient Referrer: Eleuterio Bonner MD 02/2019 08:27:39 AM EST [facility] Outpatient Attender: Mich Avila MD 05/02/2019 03:33:01 PM [facility] Medications Medication Brand Name Start Date Product Form Dose Route Admi nistrative Instructions Pharmacy Instructions Status Indications Reaction Description Data Source(s) duloxetine 60 MG Delayed Release Oral Capsule Duloxetine HCL 06/22/2019 12:00:00 AM EST ORAL active [facility] ([facility]) atorvastatin 40 MG Oral Tablet Atorvastatin Calcium 06/22/2019 1 2:00:00 AM EST ORAL active [facility] ( [facility]) gabapentin 600 MG Oral Tablet Gabapentin 06/22/2019 12:00:00 AM EST ORAL active [facility] ([facility]) Insurance Providers Payer name Policy type / Coverage type Policy ID Covered democrat ID Covered democrat's relationship to cabral Policy Cabral Plan Information [facility] [id number] SP [id number] Managed Care - [facility] Community Plan P [id number] S [id number] Medicaid S [id number] S [id number] [facility]) O [id number] S [id number] [employer] [id number] SP [id number] [place] [facility] S D [id number] SELF [id number] Managed Care - [facility] Community Plan P [id number] S [id number] Medicaid S [id number] S [id number] [facility] Comm Plan Medicaid F [id number] SELF [id number] [facility] O [id number] S [id number] Managed Care - Community Plan [facility] P [id number] S [id number] Medicaid S [id number] S [id number] Managed Care - Community Plan [facility] P [id number] S [id number] Medicaid O [id number] S [id number] Medicaid S [id number] S [id number] [facility] Community Plan Commercial Self O UNAVAILABLE UNAVAILA BLE OTHER LIABILITY [id number] SP [id number] MEDICAID [id number] SP [id number] Problems, Conditions, and Diagnoses Code Display Name Description Problem Type Effective Dates Data Source(s) 268.9 vitamin D deficiency vitamin D deficiency 11/27 01:07:15 AM EDT [facility] 794.31 Abnormal electrocardiogram [ECG] [EKG] A bnormal electrocardiogram [ECG] [EKG] 06/09/2019 06:37:24 PM [facility] 780.2 Syncope Syncope 06/09/2019 06:37:24 PM ES T [facility] F17.200 Nicotine dependence, unspecified, uncomp licated Nicotine dependence, unspecified, uncomplicated 06/09/2019 06:37:24 PM [facility] R73.03 Prediabetes Prediabetes 06/09/2019 06:37:24 PM [facility] [id number] Hyperlipidemia, unspecified Hyperlipidemia, unspecifie d 06/09/2019 06:37:24 PM [facility] V65.8 Person consulting for explanation of exa mination or test findings Person consulting for explanation of examination or test findings 06/09/2019 06:37:24 PM [facility] Surgeries/Procedures Procedure Description Date Indications Data Source(s) ECHO TTHRC R-T 2D W/WOM-MODE COMPL SPEC&COLR DOP 07/26 12:00:00 AM EST [facility] ([facility]) [id number]; review + interpretation 07/06/2019 12:00:00 AM EST [facility] ([facility]) Monitor 48HR-21Days; Recording(Connection+Recording) 07/06/2019 12:00:00 AM EST [facility] ([facility]) ECG ROUTINE ECG W/LEAST 12 LDS W/I&R 06/23/2019 12:00: 00 AM EST [facility] ([facility]) ESTABILISHED PATIENT [facility] CHARGE 020 12:00:00 AM EST eCW1 ([facility]) Results ID Date Data Source [id number] 09/07/2019 04:21:40 PM EDT [facility] Measurements & CalculationsHeight: 72 inches (6 ft. 0 in.) 182.88 cm Weight: 276 pounds 2 oz. 125.51 kg Body Mass Index (BMI): 37.59BMI Interpretation: ObeseBody Surface Area (BSA): 2.45Weight Management Education Done (Nutrition/Physical Activity)Vital SignsTemperature: 98.5F oral Pulse Rate: 86 beats/minuteRespirat ory Rate: 18 respirations/minuteBlood Pressure: 134/88 left arm sitting automaticO2 Saturation: 99% room airVital Signs performed by: Ramon Palencia MA, September 07, 2019 4:29 PMInitial Intake Information from: patientRoom #: 14Smoking, Tobacco, Vaping or Smoke Exposure StatusSmoke Status: current every day smokerTobacco Use: YesAdv to Quit: YesDo you vape? NoPassive Smoke Exposure: YesHealthcare HistorySince your last office visit...Have you been admitted to the hospital? NoHave you been to an emergency room (ER) or urgent care clinic? No - ER b/p high and heart rate lowEmergency room (ER) or urgent care date reported today: 06/08/2019Have you seen another healthcare provider? Yes - pain center, neurology, cardioHave you seen a dentist? Yes - ncfhdDental exam date reported today: 12/07/2017Intake performed by: Ramon Palencia MA, September 07, 2019 4:23 PMRate Your HealthIn general, would you say your health is? GoodPain AssessmentAre you currently having any pain which ... You would like your provider to address? Yes Affects your activity level? YesDepression Screening - PHQ-2Over the last two weeks, have you... Had little interest or pleasure in doing things? Not at all Been feeling down, depressed, or hopeless? Not at all PHQ-2 Score: 0Anxiety Screening - EBENEZER- 2Over the last two weeks, have you been... Feeling nervous, anxious, or on edge? Not at all Unable to stop or control worrying? Not at all EBENEZER-2 Score: 0Food InsecurityWithin the past year...Did you worry whether your food would run out before you got money to buy more? NoWas there a time when the food you bought didn't last and you didn't have money to get more? NoInfectious Disease / Travel ScreeningRecent travel for you or any close contacts? NoHave you had any close contact with anyone diagnosed with or under investigation for COVID-19 (coronavirus)? NoHave you had any of the following symptoms recently? Fever? NoRespiratory symptoms: cough, cold, congestion, shortness of breath, difficulty breathing? NoPain AssessmentPain ScaleNumeric Rating Scale: 8 / 10Location: back Duration: chronicFrequency: DailyCharacter/Quality: aching, burning and stabbingIs the pain radiating? YesTo what body part(s) is the pain radiating? right leg Screening, Brief Intervention, & Referral to Treatment (SBIRT)Pre- Screening Questions How many times have you have 5 or more drinks in a day? 0How many times have you used an illegal drug or used a prescription medication for a non-medical reason? 0Patient History Social/Personal History: Advised to Quit/Tobacco Education: YesChief Complaintlab results/ hyperlipidemia f/u rm 14History of Present Illness (HPI)38 yr old male Pt here today for lab results, and hyperlipidemia F/U. Pt states he has chronic back pain that is a 8/10. Pt states she also needs medications reilled. Medications are helping the pain and the depression.Staying active and watching what he eats.HPI performed by: Mich Avila MD, September 07, 2019 5:43 PMTransitions of Care InboundProblem ReviewProblem List was reviewed and/or updated during this visit.Medication Reconciliation & ReviewMedication List was reviewed and/or updated during this visit, including review of any vtuc-cmj-ltycdib medications, herbal therapies, and/or supplements.Allergy ReviewAllergy List was reviewed and/or updated during this visit.Adult Preventive CareProvider Calculated and Reviewed all Clinical Protocols for patient today. Screening Tobacco Screening: Smoking Status: current every day smoker (09/07/2019) Tobacco Use: Currently (09/07/2019) Advised to Quit: Yes (09/07/2019)Labs/Meds/Other Counseling-Nutrition and Physical Activity:BMI Interpretation: Obese (09/07/2019) Counseling: Done (09/07/2019) Physical Activity: Done (09/07/2019)Physical ExamGeneral Appearance: well nourished, well hydrated, no acute distressRespiratory, Auscultation: clear to auscultation bilaterally; no rales, rhonchi, or wheezesRespiratory, Effort: no intercostal retractions or use of accessory musclesCardiovascular, Auscultation: S1, S2 audible; no murmur, rub, or gallop; RRRGait & Station: normalOrientation: oriented to time, place, and personMood & Affect: no depression, anxiety, or agitationJudgment & Insight: intactCare Management Plan Transitions of CareInboundRate Your HealthIn general, would you say your health is? GoodAssessment & Plan Problems:Assessed:Low back pain (ICD- 724.2) (CWX57-Y68.5) Assessment: Instructions: DOing well.Continue Cymbalta and gabapentin.Hyperlipidemia, unspecified (ISI99-V48.5) Assessment: Instructions: Good control.Contiue current dose of Lipitor, diet and exercise.Patient Instructions/Care Plan: Low back pain: DOing well.Continue Cymbalta and gabapentin.Hyperlipidemia- unspecified: Good control.Contiue current dose of Lipitor, diet and exercise. Plan developed in collaboration with patient and/or familyMedications:LIPITOR 40 MG ORAL TABLETCYMBALTA 60 MG ORAL CAPSULE DELAYED RELEASE PARTICLESNEURONTIN 600 MG ORAL TABLETMedication Changes:Refilled:LIPITOR 40 MG ORAL TABLET-take one tablet by mouth daily in the evenings. Qty: 30[Tablet] Refills: 5 Method: ElectronicCYMBALTA 60 MG ORAL CAPSULE DELAYED RELEASE PARTICLES-Take one tab po once a day Qty: 30[Capsule] Refills: 5 Method: ElectronicNEURONTIN 600 MG ORAL TABLET-One po tid. Qty: 90[Tablet] Refills: 5 Method: ElectronicAllergies:No Known Allergies (updated 12/07/2017) Orders:Adult - Ofc Vst, EST, Level III [CPT-[id number]] Medications:NEURONTIN 600 MG ORAL TABLET (GABAPENTIN) One po tid. #90[Tablet] x 5 Route:ORAL Entered and Authorized by: Mich Avila MD Method used: Electronically to [facility] (retail) [address] [place] [address] Note to Pharmacy: Route: ORAL; RxID: [id number] 60 MG ORAL CAPSULE DELAYED RELEASE PARTICLES (DULOXETINE HCL) Take one tab po once a day #30[Capsule] x 5 Route:ORAL Entered and Authorized by: Mich Avila MD Method used: Electronically to [facility] (retail) [address] [place] [address] Note to Pharmacy: Route: ORAL; RxID: [id number] 40 MG ORAL TABLET (ATORVASTATIN CALCIUM) take one tablet by mouth daily in the evenings. #30[Tablet] x 5 Route:ORAL Entered and Authorized by: Mich Avila MD Method used: Electronically to [facility] (retail) [address] [place] [address] Note to Pharmacy: Route: ORAL; Indications: HYPERLIPIDEMIA, UNSPECIFIED RxID: [id number] Administered/Entered:Vaccination Group: InfluenzaSeries: 2 NOT GIVENVaccination: Flucelvax Quadrivalent PF (4y+) AdultReason Not Given: Patient decisionEntered Date: 09/07/2019 12:00 AMComments: Pt refused at this timeEntered by: Ramon Palencia MA Name Value Range Interpretation Code Description Data Chrissy rce(s) Supporting Document(s) ID Date Data Source [id number] 08/31/2019 02:40:00 PM EDT [facility] Name Value Range Interpretation Code Description Data Chrissy rce(s) Supporting Document(s) Albumin [Mass/volume] in Serum or Plasma 4.1 [facility] ([facility]) Alanine aminotransferase [Enzymatic activity/volume] in Serum or Pl asma 40 [facility] ([facility]) Chloride [Moles/volume] in Serum or Plasma 107 [facility] ([facility]) Carbon dioxide, total [Moles/volume] in Serum or Plasma 28 [facility] ([facility]) Calcium [Mass/volume] in Serum or Plasma 9.3 [facility] ([facility]) Alkaline phosphatase [Enzymatic activity/volume] in Serum or Plasma 8 9 [facility] ([facility]) Potassium [Moles/volume] in Serum or Plasma 4.4 [facility] ([facility]) Protein [Mass/volume] in Serum or Plasma 7.7 [facility] ([facility]) Aspartate aminotransferase [Enzymatic activity/volume] in Serum or Plasma 12 [facility] ([facility]) Sodium 142 [facility]) Creatinine For GFR 0.83 [facility] ([facility]) Glucose 96 83-110 [facility] Urea nitrogen [Mass/volume] in Serum or Plasma 11 [facility] ([facility]) ID Date Data Source [id number] 08/31/2019 02:40:00 PM EDT [facility] ([facility]) Name Value Range Interpretation Code Description Data Chrissy rce(s) Supporting Document(s) Triglycerides 136 [facility] ([facility] Cholesterol 164 [facility] ([facility]) Cholesterol in LDL [Mass/volume] in Serum or Plasma by calculation 96 [facility] ([facility]) Chol/HDL Ratio 4.000 [facility] ([facility]) HDL 41 [facility] ([facility]) ID Date Data Source [id number] 08/31/2019 02:40:00 PM EDT [facility] ([facility]) Name Value Range Interpretation Code Description Data Chrissy rce(s) Supporting Document(s) Thyroid Stimulating Hormone 1.230 ME [facility] ([facility]) Free T4 1.08 [facility] Hemoglobin A1c/Hemoglobin.total in Blood 6.0 [facility] ([facility]) ID Date Data Source [id number] 08/31/2019 02:40:00 PM EDT [facility] ([facility]) Name Value Range Interpretation Code Description Data Chrissy rce(s) Supporting Document(s) White Blood Count 7.8 4.0-10.0 [facility] ([facility]) Red Blood Count 5.08 4.30-6.10 [facility] ([facility]) Platelets 375 172-450 [facility] Hemoglobin 15.8 [facility] ([facility]) Hematocrit 47.7 [facility] ([facility]) ID Date Data Source [id number] 08/31/2019 09:46:01 AM EDT [facility] Labs In-House Blood TestsDate/Time Colle cted: August 31, 2019 9:46 AMTest Result Reference Range Normal ValueComments: blood draw done in office, taken from left ac, tolerated well., could not give a urine today.Jenny Conway, August 31, 2019 9:46 AMAssessment & Plan Orders:[id number]- Ofc Vst-Est Level I [CPT-[id number]] 40883 - Venipuncture [CPT-47079] Name Value Range Interpretation Code Description Data Chrissy rce(s) Supporting Document(s) ID Date Data Source [id number] 08/31/2019 09:40:00 AM EDT [facility] Name Value Range Interpretation Code Description Data Chrissy rce(s) Supporting Document(s) HCT 47.7 % 42.0-52.0 N [facility] HGB 15.8 g/dL 13.5-17.5 N [facility] MCH 33.1 G/DL pg 32.0-36.[address] [facility] MCHC 31.1 PG % 27.0-33.0 N [facility] PLATELETS 375 10 10*3/mm3 150-450 N [facility] RBC 5.08 10 10*6/mm3 4.30-6.10 N [facility] RDW 12.2 % 11.5-14.5 N [facility] WBC TOTAL 7.8 4.0-10.0 N [facility] ID Date Data Source [id number] 08/31/2019 09:40:00 AM EDT [facility] Name Value Range Interpretation Code Description Data Chrissy rce(s) Supporting Document(s) HGBA1C 6.0 % N [facility] ID Date Data Source [id number] 08/31/2019 09:40:00 AM EDT [facility] Name Value Range Interpretation Code Description Data Chrissy rce(s) Supporting Document(s) BG FASTING 96 mg/dL 70-100 N [facility] T4, FREE 1.08 ng/dL 0.76-1.46 N [facility] TSH 1.230 microintl units/mL 0.358-3.740 N [facility] VIT D25 TOT 19.9 ng/mL 30.0-100.0 L [facility] ID Date Data Source [id number] 06/23/2019 01:42:00 PM EST [facility] ([facility]) Name Value Range Interpretation Code Description Data Chrissy rce(s) Supporting Document(s) Magnesium [Mass/volume] in Serum or Plasma 2.3 mg/dL 1.8-2.4 [facility] ([facility]) ID Date Data Source [id number] 06/09/2019 05:20:30 PM EST [facility] Measurements & CalculationsHeight: 72 inches (6 ft. 0 in.) 182.88 cm Weight: 263.8 pounds 119.91 kg Body Mass Index (BMI): 35.91BMI Interpretation: ObeseBody Surface Area (BSA): 2.40Weight Management Education Done (Nutrition/Physical Activity)Vital SignsTemperature: 97.9F oral Pulse Rate: 104 beats/minuteRespira tory Rate: 17 respirations/minuteBlood Pressure: 137/88 left arm sitting automaticO2 Saturation: 95% room airVital Signs performed by: Tamara Gomez LPN, June 09, 2019 5:27 PMInitial Intake Information from: patientRoom #: 14Infectious Disease- Travel Have you or your sexual partner travelled outside of the country recently? NoSmoking, Tobacco or Smoke Exposure StatusSmoke Status: current every day smokerTobacco Use: YesAdv to Quit: YesPassive Smoke Exposure: YesHealthcare HistorySince your last office visit...Have you been admitted to the hospital? NoHave you been to an emergency room (ER) or urgent care clinic? Yes - ER b/p high and heart rate lowEmergency room (ER) or urgent care date reported today: 06/08/2019Have you seen another healthcare provider? Yes - pain center, neurologyHave you seen a dentist? Yes - ncfhdIntake performed by: Tamara Gomez LPN, June 09, 2019 5:23 PMRate Your HealthIn general, would you say your health is? GoodPain AssessmentAre you currently having any pain which... You would like your provider to address? Yes Affects your activity level? YesDepression Screening - PHQ-2Over the last two weeks, have you... Had little interest or pleasure in doing things? Not at all Been feeling down, depressed, or hopeless? Not at all PHQ-2 Score: 0Anxiety Screening - EBENEZER-2Over the last two weeks, have you been... Feeling nervous, anxious, or on edge? Not at all Unable to stop or control worrying? Not at all EBENEZER-2 Score: 0Pain AssessmentPain ScaleNumeric Rating Scale: 10 / 10Location: backDuration: chronicCharacter/Quality: aching, burning and stabbingIs the pain radiating? YesScreening, Brief Intervention, & Referral to Treatment (SBIRT)Pre-Screening Questions How many times have you have 5 or more drinks in a day? 0How many times have you used an illegal drug or used a prescription medication for a non-medical reason? 0Performed by: Tamara Gomez LPN, June 09, 2019 5:24 PMPatient History Medical History:Herniated discs in lower backSurgical History:Right kneeRight ankleFamily History:UnremarkableSocial/Personal History: Smoking Status: current every day smokerAdvised to Quit/Tobacco Education: YesChief Complaintlabs, b/p and heart rateHistory of Present Illness (HPI)38 yo male here for labs f/u. Pt states he was at pain clinic yesterday and they sent him to the ER for increased B/P and low heart rate. pt states checked out then sent home. Pt states he passed out about 3-4 weeks ago and has been feeling dizzy at timesPt states intermittent dizziness and chest palpitation started about 2 months ago. Pt states had a syncope episode about three to 4 weeks ago. pt states was in [facility] at the time. pt states had to do a 15 weekends [facility] time for failure to pay child support. Pt statess no syncope episodes since. Pt denies dizziness, chest pain or chst palpitations at this time. HPI performed by: Rashmi SLATER, June 09, 2019 6:04 PMTransitions of Care InboundProblem ReviewProblem List was reviewed and/or updated during this visit.Medication Reconciliation & ReviewMedication List was reviewed and/or updated during this visit, including review of any jfvg-gpe-bctsfxm medications, herbal therapies, and/or supplements.Allergy ReviewAllergy List was reviewed and/or updated during this visit.Adult Preventive CareProvider Calculated and Reviewed all Clinical Protocols for patient today. Screening Tobacco Screening: Smoking Status: current every day smoker (06/09/2019) Advised to Quit: Yes (06/09/2019)Labs/Meds/Other Counseling-Nutrition and Physical Activity:BMI Interpretation: Obese (06/09/2019) Counseling: Done (06/09/2019) Physical Activity: Done (06/09/2019)Review of Systems General: Denies loss of appetite, chills, dizziness, fatigue, fever, continued fever, headache, feeling ill, sweats, night sweats, sleep disturbances, weight loss. Eyes: Denies blurring of vision, double vision, irritation, discharge, vision loss, eye pain, eye swelling, droopy eyelid, sensitivity to light, redness, itching. Ears/Nose/Throat: Denies earache, ear discharge, ringing in ears, decreased hearing, nasal congestion, nosebleeds, runny nose, sore throat, hoarseness. Cardiovascular: Complains of chest pain, palpitations, feeling faint, trouble breathing w/exertion. Denies SOB upon lying down, SOB at night, peripheral edema, elevated blood pressure, decreased heart rate. intermittent symptoms per patient.Respiratory: Denies cough, difficulty breathing, shortness of breath, excessive sputum, coughing up blood, wheezing, chest pain. Gastrointestinal: Denies nausea, vomiting, bleeding, burning, itching, irritation, cramps, diarrhea, constipation. Genitourinary: Denies urinary incontinence, pain with urination, burning with urination, urinary frequency, urinary hesitancy, urinary urgency, urinary urgency at night, incomplete emptying, impotence. Musculoskeletal: Denies back pain, joint pain, leg pain, joint swelling, body aches, muscle aches, muscle cramps, muscle weakness, stiffness, recent injury. Skin: Denies rash, hives, redness, itching, dryness, nail changes, suspicious lesions, athlete's foot, rash on palms, rash on bottom of feet. Neurologic: Denies muscle impairment, weakness, numbness/tingling, seizures, slurred speech, feeling faint, tremors, vertigo, paralysis on one side, paralysis on both sides. Psychiatric: Denies depression, anxiety, memory loss, mental disturbance, suicidal ideation, homicidal ideation, hallucinations, paranoia, feeling stressed, hearing voices. Endocrine: Denies cold intolerance, heat intolerance, excessive thirst, excessive hunger, excessive urination, weight loss, weight gain. Physical ExamGeneral Appearance: well nourished, well hydrated, no acute distressEyes, External: conjunctivae and lids normal, EOMIRespiratory, Auscult ation: clear to auscultation bilaterally; no rales, rhonchi, or wheezesRespiratory, Effort: no intercostal retractions or use of accessory musclesCardiovascular, Auscultation: S1, S2 audible; no murmur, rub, or gallop; RRRPeripheral Circulation: no clubbing, cyanosis, edema, or varicositiesAbdomen: soft, non-tender, no masses, bowel sounds normalGait & Station: normalSkin, Inspection: no rashes, lesions, or ulcerationsOrientation: oriented to time, place, and personMood & Affect: no depression, anxiety, or agitationJudgment & Insight: intactCare Management Plan Transitions of CareInboundRate Your HealthIn general, would you say your health is? GoodAssessment & Plan Problems:Added: Abnormal electrocardiogram [ECG] [EKG] (ICD-794.31) (HVF35-G35.31)Person consulting for explanation of examination or test findings (ICD-V65.8) (ICD10- Z71.2) Assessment: Instructions: We have reviewed your lab results with you today. your lab results are unremarkable excet for elevated cholesterol and prdiabetes. Your HGAC is 5.7 this indicates prediabetes. Your LDL is 172. this indicates elevated cholesterol. Please start lifestyle changes to include healthy diet and physical activities. Please try to maintain adequate fluid intake. Please try to avoid processed foods.Hyperlipidemia, unspecified (ICD10- E78.5) Assessment: Instructions: We have sent a prescription to start you on cholesterol medication Crestor 20 mg daily. please also start lifestyle changes to include healthy diet and physical activities. Please try to avoid processed foods. Please try to quit smoking.Prediabetes (UXJ38-O54.03) Assessment: Instructions: Please also start lifestyle changes to include healthy diet and physical activities. Please try to avoid processed foods. Please try to limit sugars and carbohydrates in your diet.Nicotine dependence, unspecified, uncomplicated (SSD55-N05.200) Assessment: Instructions: Please try to cut back on your smoking with a gaol to quit.Syncope (ICD-780.2) (VRC13-S01) Assessment: Instructions: Please try to change your position slowly. Please try to maitain adequate fluid intake. We have made a referral for you today to cardiology. .Assessed:Health Screening (ICD-V70.0) (IBB77-U95.9) Assessment: Instructions: We have reviewed your lab results with you today.Low back pain (ICD-724.2) (LXT35-C56.5) Assessment: Instructions: Please continue to follow with your specialist.Assessment not Saved Health Screening (HRR92-U90.9): Patient Instructions/Care Plan: Health Screening: We have reviewed your lab results with you today.Person consulting for explanation of examination or test findings: We have reviewed your lab results with you today. your lab results are unremarkable excet for elevated cholesterol and prdiabetes. Your HGAC is 5.7 this indicates prediabetes. Your LDL is 172. this indicates elevated cholesterol. Please start lifestyle changes to include healthy diet and physical activities. Please try to maintain adequate fluid intake. Please try to avoid processed foods.Low back pain: Please continue to follow with your specialist.Hyperlipidemia- unspecified: We have sent a prescription to start you on cholesterol medication Crestor 20 mg daily. please also start lifestyle changes to include healthy diet and physical activities. Please try to avoid processed foods. Please try to quit smoking.Prediabetes: Please also start lifestyle changes to include healthy diet and physical activities. Please try to avoid processed foods. Please try to limit sugars and carbohydrates in your diet.Nicotine dependence- unspecified- uncomplicated: Please try to cut back on your smoking with a gaol to quit.Syncope: Please try to change your position slowly. Please try to maitain adequate fluid intake. We have made a referral for you today to cardiology. . Plan developed in collaboration with patient and/or familyMedications:CRESTOR 20 MG ORAL TABLETCYMBALTA 60 MG ORAL CAPSULE DELAYED RELEASE PARTICLESNEURONTIN 600 MG ORAL TABLETMedication Changes:New Prescription:CRESTOR 20 MG ORAL TABLET-take one tablet by mouth daily Qty: 30[Tablet] Refills: 2 Method: ElectronicAllergies:No Known Allergies (updated 12/07/2017) Orders:Cardiology Consult [CPT-26250] Adult - Ofc Vst, EST, Level IV [CPT-07493] Follow-Up Return to clinic: 3 months for follow up Clinical Visit Summary Completed Name Value Range Interpretation Code Description Data Chrissy rce(s) Supporting Document(s) ID Date Data Source [id number] 06/07/2019 01:27:00 PM EST [facility] Name Value Range Interpretation Code Description Data Chrissy rce(s) Supporting Document(s) HCT 45.2 % 42.0-52.0 N [facility] HGB 15.0 g/dL 13.5-17.5 [facility] MCH 33.2 G/DL pg 32.0-36.[address] [facility] MCHC 31.1 PG % 27.0-33.0 [facility] PLATELETS 372 10 10*3/mm3 150-450 [facility] RBC 4.83 10 10*6/mm3 4.30-6.10 [facility] RDW 12.1 % 11.5-14.5 [facility] WBC TOTAL 7.0 4.0-10.0 [facility] ID Date Data Source [id number] 06/07/2019 01:27:00 PM EST [facility] Name Value Range Interpretation Code Description Data Chrissy rce(s) Supporting Document(s) VIT D25 TOT 18.2 ng/mL 30.0-100.0 L [facility] BG FASTING 96 mg/dL 70-100 N [facility] T4, FREE 1.10 ng/dL 0.76-1.46 N [facility] TSH 1.050 microintl units/mL 0.358-3.740 N [facility] ID Date Data Source [id number] 06/07/2019 01:27:00 PM EST [facility] Name Value Range Interpretation Code Description Data Chrissy rce(s) Supporting Document(s) HGBA1C 5.7 % N [facility] ID Date Data Source [id number] 06/07/2019 08:24:00 AM EST [facility] ([facility]) Name Value Range Interpretation Code Description Data Chrissy rce(s) Supporting Document(s) Hemoglobin A1c/Hemoglobin.total in Blood 5.7 [facility] ([facility]) ID Date Data Source [id number] 06/07/2019 08:24:00 AM EST [facility] ([facility]) Name Value Range Interpretation Code Description Data Chrissy rce(s) Supporting Document(s) Albumin [Mass/volume] in Serum or Plasma 4.2 [facility] ([facility]) Carbon dioxide, total [Moles/volume] in Serum or Plasma 26 [facility] ([facility]) Calcium [Mass/volume] in Serum or Plasma 9.1 [facility] ([facility]) Alanine aminotransferase [Enzymatic activity/volume] in Serum or Pl asma 30 [facility] ([facility]) Potassium [Moles/volume] in Serum or Plasma 4.5 [facility] ([facility]) Alkaline phosphatase [Enzymatic activity/volume] in Serum or Plasma 7 4 [facility] ([facility]) Chloride [Moles/volume] in Serum or Plasma 107 [facility] ([facility]) Protein [Mass/volume] in Serum or Plasma 7.3 [facility] ([facility]) Aspartate aminotransferase [Enzymatic activity/volume] in Serum or Plasma 12 [facility] ([facility]) Sodium 141 [facility] [facility]) Glucose 96 83-110 MEDENT ([facility]) Urea nitrogen [Mass/volume] in Serum or Plasma 13 MEDENT ([facility]) Creatinine For GFR 0.81 MEDENT ([facility]) ID Date Data Source [id number] 06/07/2019 08:24:00 AM EST [facility] Name Value Range Interpretation Code Description Data Chrissy rce(s) Supporting Document(s) Cholesterol 248 MEDENT ([facility]) Triglycerides 183 MEDENT ([facility]iol[facility]) HDL 39 [facility] Cholesterol in LDL [Mass/volume] in Serum or Plasma by calculation 17 2 MEDENT ([facility]) Chol/HDL Ratio 6.358 MEDENT ([facility]iol [facility]) ID Date Data Source [id number] 06/07/2019 08:24:00 AM EST MEDENT ([facility]) Name Value Range Interpretation Code Description Data Chrissy rce(s) Supporting Document(s) Thyroid Stimulating Hormone 1.050 ME DENT ([facility]) ID Date Data Source [id number] 06/07/2019 08:24:00 AM EST MEDENT ([facility]) Name Value Range Interpretation Code Description Data Chrissy rce(s) Supporting Document(s) White Blood Count 7.0 5.0-10.0 MEDENT ([facility]) Platelets 372 172-450 [facility] Red Blood Count 4.83 4.00-5.40 MEDENT ([facility]io [facility]) Hematocrit 45.2 MEDENT ([facility]) Hemoglobin 15.0 MEDENT ([facility]) Procedure Vital Signs ID Date Data Source UNK Name Value Range Interpretation Code Description Data Source(s) Body weight 267.00 [lb_av] 267.00 [lb_av] MEDEN T ([facility]) Body height 74 [in_i] 74 [in_i] MEDENT [facility] 6'2" Body mass index (BMI) [Ratio] 34.3 kg/m2 34.3 k g/m2 MEDENT ([facility]) Heart rate 72 /min 72 /min MEDENT ([facility]io [facility]) Systolic blood pressure--sitting 130 mm[Hg] 130 mm[Hg] MEDENT ([facility]) [employer] adult cuff, [place] Diastolic blood pressure--sitting 86 mm[Hg] 86 mm[Hg] MEDENT ([facility]) [employer] [place] cuff[place] Diastolic blood pressure 77 mm[Hg] 77 mm[Hg] eCW1 ([facility]) Systolic blood pressure 170 mm[Hg] 170 mm[Hg] e CW1 ([facility]) Body temperature 97.9 [degF] 97.9 [degF] eCW1 ( [facility]) Respiratory rate 18 /min 18 /min eCW1 ([facility]) Heart rate 40 /min 40 /min eCW1 ([facility]) Body mass index (BMI) [Ratio] 35.80 kg/m2 35.80 kg/m2 eCW1 ([facility]) Body height 72 [in_us] 72 [in_us] eCW1 ([facility]) Body weight Measured 264.0 [lb_av] 264.0 [lb_av ] eCW1 ([facility])
--- NOTE | 2020-06-25 00:33 | REPVR ---
PROCEDURE INFORMATION: Exam: XR Right Ribs with PA Chest, 3 Views Exam date and time: 06/24/2020 11:59 PM Age: 39 years old Clinical indication: Other: Right lpwer rib pain; Patient HX: Fell on stairs 4 days ago, increased pain on movement today. ; Additional info: Injury TECHNIQUE: Imaging protocol: XR Right ribs 3 views with PA chest. COMPARISON: AL PORTABLE CHEST X-RAY 06/08/2019 9:46 AM FINDINGS: Lungs: Unremarkable. No consolidation. Pleural spaces: Unremarkable. No pleural effusion. No pneumothorax. Heart/Mediastinum: Unremarkable. No cardiomegaly. Bones/joints: Nondisplaced right 10th rib fracture. No other acute fractures. IMPRESSION: Right 12th posterior rib fracture. Electronically signed by: Siddharth Preciado On 06/25/2020 00:33:08 AM
[2020-06-25] MEDS ORDERED: PERCOCET 5MG/325MG TAB PO ONE (00:45)
[2020-06-25] MEDS ORDERED: NAPR500T6 PO (02:31)
[2020-06-25] MEDS ORDERED: PERC5TAB12 PO (02:31)
[2020-06-25] MEDS ORDERED: ACET325C5 PO (02:38)
--- NOTE | 2020-06-25 20:36 | ECGEPIP ---
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
== END 2020-06-25 02:50 | disposition home or self-care (01) ==
LOC: M ED 23:30
DX: S22.31XA Fracture of one rib, right side, initial encounter for closed fracture (principal); W10.9XXA Fall (on) (from) unspecified stairs and steps, initial encounter; Y92.099 Unspecified place in other non-institutional residence as the place of occurrence of the external cause; Y93.9 Activity, unspecified; Y99.9 Unspecified external cause status; I10 Essential (primary) hypertension; E78.5 Hyperlipidemia, unspecified; Z79.899 Other long term (current) drug therapy

== ENCOUNTER 2023-02-02 11:43 | Emergency (ER) | payer OTHER ==
[~2023-02-02] VITALS: Ht 188 cm; Wt 101.5 kg
[~2023-02-02 11:43] MED LIST changes: +ACET325C5 PO; +DULO1CAP6; +NAPR500T6 PO; +PERC5TAB12 PO
[2023-02-02] MEDS ORDERED: LIDOCAINE 5% (LIDODERM) PATCH TD ONE (14:05)
[2023-02-02] MEDS ORDERED: methylPREDNISolone 125MG 2ML VIAL IV ONE (14:05)
[2023-02-02] MEDS ORDERED: KETOROLAC 30 MG/ML 1ML VIAL IV ONE (14:05)
[2023-02-02] MEDS ORDERED: diazePAM 10 MG TAB PO ONE (14:05)
[2023-02-02 14:34] LABS: BASO # 0.1 10^3/uL (0.0-0.2); BASO % 0.5 % (0.0-1.0); EOS # 0.4 10^3/uL (0.0-0.5); EOS % 3.8 % (0.0-3.0); HEMATOCRIT 49.5 % (42.0-52.0); HEMOGLOBIN 16.5 g/dl (13.5-17.5); LYMPH # 2.9 10^3/uL (1.5-5.0); LYMPH % 31.7 % (24.0-44.0); MEAN CORPUSCULAR HEMOGLOBIN 31.4 pg (27.0-33.0); MEAN CORPUSCULAR HGB CONC 33.3 g/dl (32.0-36.5); MEAN CORPUSCULAR VOLUME 94.1 fl (80.0-96.0); MONO # 0.7 10^3/uL (0.0-0.8); MONO % 7.4 % (2.0-8.0); NEUTROPHILS # 5.2 10^3/uL (1.5-8.5); NEUTROPHILS % 56.3 % (36.0-66.0); PLATELET COUNT, AUTOMATED 466 10^3/uL (150-450); RED BLOOD COUNT 5.26 10^6/uL (4.30-6.10); WHITE BLOOD COUNT 9.2 10^3/uL (4.0-10.0)
[2023-02-02 14:49] LABS: BLOOD UREA NITROGEN 15 MG/DL (9-23); CALCIUM LEVEL 9.7 MG/DL (8.5-10.1); CARBON DIOXIDE LEVEL 30 MMOL/L (20-31); CHLORIDE LEVEL 104 MMOL/L (98-107); CREATININE FOR GFR 0.82 MG/DL (0.70-1.30); GLOMERULAR FILTRATION RATE > 60.0 (>60); GLUCOSE, FASTING 99 MG/DL (60-100); POTASSIUM SERUM 4.8 MMOL/L (3.5-5.1); SODIUM LEVEL 141 MMOL/L (136-145)
[2023-02-02] MEDS ORDERED: MORPHINE 4 MG/ML 1ML VIAL IV ONE ×2 (15:00→17:20)
[2023-02-02 17:47] VITALS: BP 139/87; TEMP 98.2; O2SAT 98
[2023-02-02] MEDS ORDERED: OXYCODONE/APAP 5MG/325MG(HOME DOSE PACK) PO ONE (21:45)
[2023-02-02] MEDS ORDERED: MEDR4PAK PO (21:46)
[2023-02-02] MEDS ORDERED: PERC5TAB12 PO (21:46)
== END 2023-02-02 21:58 | disposition home or self-care (01) ==
LOC: M ED 11:43
DX: S33.0XXA Traumatic rupture of lumbar intervertebral disc, initial encounter (principal); M54.50 Low back pain, unspecified; M51.26 Other intervertebral disc displacement, lumbar region; F17.200 Nicotine dependence, unspecified, uncomplicated; Z79.02 Long term (current) use of antithrombotics/antiplatelets; Z79.891 Long term (current) use of opiate analgesic; Z79.899 Other long term (current) drug therapy
CPT/HCPCS: 72148; 80048; 85025; 96374; 96375; 96376; 99284; J1885; J2930

== ENCOUNTER → 2023-09-11 | Outpatient (CLI) | payer OTHER ==
[~2023-09-11] MED LIST changes: +MEDR4PAK PO
== END ==
LOC: M RAD 11:46
PROVIDERS: ATTEND Neurological Surgery
DX: Z01.810 Encounter for preprocedural cardiovascular examination (principal); R06.02 Shortness of breath; M47.26 Other spondylosis with radiculopathy, lumbar region

== ENCOUNTER → 2023-09-23 | Outpatient (CLI) | payer OTHER ==
[2023-09-23 14:52] LABS: HEMATOCRIT 41.7 % (42.0-52.0); HEMOGLOBIN 14.4 g/dl (13.5-17.5); MEAN CORPUSCULAR HEMOGLOBIN 32.1 pg (27.0-33.0); MEAN CORPUSCULAR HGB CONC 34.5 g/dl (32.0-36.5); MEAN CORPUSCULAR VOLUME 92.9 fl (80.0-96.0); PLATELET COUNT, AUTOMATED 397 10^3/uL (150-450); RED BLOOD COUNT 4.49 10^6/uL (4.30-6.10); WHITE BLOOD COUNT 7.1 10^3/uL (4.0-10.0)
[2023-09-23 15:00] LABS: APPEARANCE, URINE CLEAR (CLEAR); BACTERIA, URINE AUTO NEGATIVE (NEGATIVE); BILIRUBIN, URINE AUTO NEGATIVE (NEGATIVE); BLOOD, URINE BLOOD NEGATIVE (NEGATIVE); COLOR, URINE YELLOW (YELLOW); GLUCOSE, URINE (UA) AUTO NEGATIVE (NEGATIVE); KETONE, URINE AUTO NEGATIVE (NEGATIVE); LEUKOCYTE ESTERASE, URINE AUTO NEGATIVE (NEGATIVE); MUCUS, URINE SMALL (NEGATIVE); NITRITE, URINE AUTO NEGATIVE (NEGATIVE); PROTEIN, URINE AUTO 1+ mg/dL (NEGATIVE); RBC, URINE AUTO 3 /HPF (0-3); SQUAMOUS EPITHELIAL CELL UR AU 2 /HPF (0-6); UROBILINOGEN, URINE AUTO 0.2 mg/dL (0.0-2.0); WBC, URINE AUTO 1 /HPF (0-3)
[2023-09-23 15:06] LABS: INR 0.92; PROTHROMBIN TIME 12.1 SECONDS (12.5-14.5)
[2023-09-23 15:24] LABS: ALBUMIN 3.6 G/DL (3.2-5.2); ALKALINE PHOSPHATASE 73 U/L (46-116); ALT/SGPT 29 U/L (7.0-40); AST/SGOT 16 U/L (<34); BILIRUBIN,TOTAL 0.3 MG/DL (0.3-1.2); BLOOD UREA NITROGEN 11 MG/DL (9-23); CARBON DIOXIDE LEVEL 28 MMOL/L (20-31); CHLORIDE LEVEL 108 MMOL/L (98-107); CREATININE FOR GFR 0.84 MG/DL (0.70-1.30); GLOMERULAR FILTRATION RATE > 60.0 (>60); GLUCOSE, FASTING 135 MG/DL (60-100); POTASSIUM SERUM 4.2 MMOL/L (3.5-5.1); SODIUM LEVEL 143 MMOL/L (136-145); TOTAL PROTEIN 6.7 G/DL (5.7-8.2)
== END ==
LOC: M LAB 13:43
PROVIDERS: ATTEND Family Medicine Addiction Medicine
DX: Z01.812 Encounter for preprocedural laboratory examination (principal); R06.02 Shortness of breath; M47.26 Other spondylosis with radiculopathy, lumbar region

== ENCOUNTER → 2023-10-08 | Outpatient (CLI) | payer OTHER | LOC: M PLAIMG 08:33 | PROVIDERS: ATTEND Neurological Surgery | DX: M47.26 Other spondylosis with radiculopathy, lumbar region (principal) ==

== ENCOUNTER 2023-10-25 15:46 | Emergency (ER) | payer OTHER ==
[~2023-10-25] VITALS: Ht 188 cm; Wt 118.2 kg
[2023-10-25 17:27] VITALS: BP 151/89; TEMP 97.7; O2SAT 94
== END 2023-10-25 17:34 | disposition home or self-care (01) ==
LOC: M ED 15:46
DX: Z48.01 Encounter for change or removal of surgical wound dressing (principal); M54.50 Low back pain, unspecified; F17.200 Nicotine dependence, unspecified, uncomplicated; Z86.79 Personal history of other diseases of the circulatory system; Z79.02 Long term (current) use of antithrombotics/antiplatelets; Z79.1 Long term (current) use of non-steroidal anti-inflammatories (NSAID); Z79.899 Other long term (current) drug therapy

== ENCOUNTER 2023-11-22 11:30 | Emergency (ER) | payer OTHER ==
[~2023-11-22] VITALS: Ht 188 cm; Wt 110.3 kg
[2023-11-22 13:38] VITALS: BP 146/72; TEMP 98.7; O2SAT 98
== END 2023-11-22 13:45 | disposition home or self-care (01) ==
LOC: M ED 11:30
DX: Z48.02 Encounter for removal of sutures (principal); F17.200 Nicotine dependence, unspecified, uncomplicated; E78.5 Hyperlipidemia, unspecified; F32.A Depression, unspecified; Z79.02 Long term (current) use of antithrombotics/antiplatelets; Z79.899 Other long term (current) drug therapy; Z79.1 Long term (current) use of non-steroidal anti-inflammatories (NSAID)

== ENCOUNTER → 2024-07-22 | Outpatient (CLI) | payer OTHER ==
[~2024-07-22] MED LIST changes: +GABA-1172 PO; -GABA-282 PO; +NAPR-1405 PO; -NAPR500T6 PO
== END ==
LOC: M RAD 07:00
PROVIDERS: ATTEND Family Medicine Addiction Medicine
DX: M51.26 Other intervertebral disc displacement, lumbar region (principal)

== ENCOUNTER → 2024-09-22 | Outpatient (REF) | payer OTHER ==
[2024-09-22 13:06] LABS: BASO # 0.1 10^3/uL (0.0-0.2); EOS # 0.9 10^3/uL (0.0-0.5); EOS % 11.9 % (0.0-3.0); HEMATOCRIT 43.8 % (42.0-52.0); HEMOGLOBIN 14.8 g/dl (13.5-17.5); LYMPH # 2.7 10^3/uL (1.5-5.0); LYMPH % 38.1 % (24.0-44.0); MEAN CORPUSCULAR HEMOGLOBIN 31.6 pg (27.0-33.0); MEAN CORPUSCULAR HGB CONC 33.8 g/dl (32.0-36.5); MEAN CORPUSCULAR VOLUME 93.6 fl (80.0-96.0); MONO # 0.6 10^3/uL (0.0-0.8); MONO % 8.4 % (2.0-8.0); NEUTROPHILS # 2.9 10^3/uL (1.5-8.5); NEUTROPHILS % 40.2 % (36.0-66.0); PLATELET COUNT, AUTOMATED 369 10^3/uL (150-450); RED BLOOD COUNT 4.68 10^6/uL (4.30-6.10); WHITE BLOOD COUNT 7.2 10^3/uL (4.0-10.0)
[2024-09-22 13:14] LABS: ALBUMIN 3.9 G/DL (3.2-5.2); ALKALINE PHOSPHATASE 64 U/L (40-129); ALT/SGPT 34 U/L (7.0-40); AST/SGOT 21 U/L (<34); BILIRUBIN,TOTAL 0.4 MG/DL (0.3-1.2); BLOOD UREA NITROGEN 13 MG/DL (9-23); CALCIUM LEVEL 9.1 MG/DL (8.5-10.1); CARBON DIOXIDE LEVEL 28 MMOL/L (20-31); CHLORIDE LEVEL 105 MMOL/L (98-107); CHOLESTEROL LEVEL 233 MG/DL (<200); CHOLESTEROL RISK RATIO 5.27 (<5); CREATININE FOR GFR 0.71 MG/DL (0.70-1.30); GLOMERULAR FILTRATION RATE > 90.0 (>60); GLUCOSE, FASTING 102 MG/DL (60-100); HDL CHOLESTEROL 44.2 MG/DL (>40); LDL CHOLESTEROL 143.4 MG/DL (<100); NON-HDL-C 188.8 MG/DL; POTASSIUM SERUM 4.8 MMOL/L (3.5-5.1); SODIUM LEVEL 142 MMOL/L (136-145); TOTAL PROTEIN 7.2 G/DL (5.7-8.2); TRIGLYCERIDES LEVEL 227 MG/DL (<150)
[2024-09-22 13:16] LABS: THYROID STIMULATING HORMONE 1.234 uIU/ML (0.55-4.78)
== END ==
LOC: M LAB REF 12:36
PROVIDERS: ATTEND Family Medicine Addiction Medicine
DX: R03.0 Elevated blood-pressure reading, without diagnosis of hypertension (principal)

== ENCOUNTER → 2024-12-20 | Outpatient (CLI) | payer OTHER | LOC: M RAD 08:45 | PROVIDERS: ATTEND Family Medicine Addiction Medicine | DX: R10.13 Epigastric pain (principal) ==

== ENCOUNTER → 2025-02-04 | Outpatient (CLI) | payer OTHER | LOC: M RAD 12:16 | PROVIDERS: ATTEND Orthopaedic Surgery | DX: M54.6 Pain in thoracic spine (principal); M54.2 Cervicalgia; M47.812 Spondylosis without myelopathy or radiculopathy, cervical region ==